=== PATIENT | female | born 1945 | race Caucasian/White ===

== ENCOUNTER → 2023-06-30 11:24 | Outpatient (REF) | payer OTHER, SELFPAY | LOC: WDC 11:24 | PROVIDERS: ATTENDING PHYSICIAN Family Medicine | DX: Z12.31 Encounter for screening mammogram for malignant neoplasm of breast (principal) | CPT/HCPCS: 77063; 77067 ==

== ENCOUNTER → 2023-07-07 12:54 | Outpatient (REF) | payer OTHER, SELFPAY | LOC: HWRAD 12:54 | PROVIDERS: ATTENDING PHYSICIAN Nurse Practitioner Family; FAMILY PHYSICIAN Family Medicine | DX: R10.32 Left lower quadrant pain (principal) | CPT/HCPCS: 74177; Q9967 ==

== ENCOUNTER → 2023-08-13 08:48 | Outpatient (REF) | payer OTHER, SELFPAY | LOC: PAVMRI 08:48 | PROVIDERS: ATTENDING PHYSICIAN Family Medicine | DX: K85.00 Idiopathic acute pancreatitis without necrosis or infection (principal); R93.5 Abnormal findings on diagnostic imaging of other abdominal regions, including retroperitoneum | CPT/HCPCS: 74183; A9575 ==

== ENCOUNTER 2023-10-10 01:52 | Inpatient (IN) | payer OTHER, SELFPAY ==
[2023-10-09 22:35] VITALS: BP 170/89
--- NOTE | 2023-10-09 23:46 | ED.GENMED ---
History of Present Illness
General
Chief Complaint: Abdominal Pain
Source: patient, records and previous radiology exam
Exam Limitations: none
Time Seen by Provider: 10/09/23 23:38
Nursing documentation reviewed up to this point in time: agreed with
History of Present Illness
History of Present Illness:
77-year-old female presents with abdominal pain nausea vomiting, from her lower abdomen up into her chest, states she has had pancreatitis previously treated conservatively, she had a CAT scan and MRI, stop drinking alcohol, started herself on a
bland diet, which improved her symptoms, yesterday she had some eggs, symptoms worsen developed nausea vomiting pain, no fevers no chills, has had prior orthopedic procedures, no prior abdominal surgeries,
Past History
Past History
ED Past Medical History: GERD, Hypercholesterolemia, Hypothyroidism, Psychiatric (Anxiety disorder), Other (Migraine headaches), Other (Cerebral venous thrombosis) and Other (Herniated lumbar disc)
ED Past Surgical History: Orthopedic and Other (Eye surgery, cataract surgery, partial thyroidectomy); Negative Appendectomy, Bowel resection or Cholecystectomy
Social History
Tobacco: Smoker
Alcohol: Former
Drug: None
Personal:
Living: with family
Employment: Retired
Review of Systems
Review of Systems
All Other Systems: Not applicable
Constitutional: Reports fever (99.8)
EENT: Reports no symptoms
Respiratory: Reports no symptoms
Cardiac: Reports no symptoms
ABD/GI: Reports abdominal pain, nausea and vomiting
Musculoskeletal: Reports no symptoms
Skin: Reports no symptoms
Neurological: Reports no symptoms
Endocrine: Reports no symptoms
Hematologic/Lymphatic: Reports no symptoms
Psychiatric: Reports no symptoms
Phy Exam
Physical Exam
Physical Exam:
Physical Exam
General: 77-year-old female nontoxic looks uncomfortable
Neck: No jaundice
Heart: s1/s2 regular rate and rhythm, no murmur. equal radial pulses.
Lungs: no acute respiratory distress. clear bilaterally
Abdomen: Tender in the epigastrium and mid abdomen
Neuro: alert and oriented. no focal neurological deficits
Skin: no rash
Psychiatric: well kept. interactive and cooperative
Extremities: no edema. no calf tenderness.
Course
Orders/Labs/Results
Orders:
Orders
10/09/23 23:39
Urinalysis Reflex To Culture Urgent
Date Specimen was Collected: 10/10/23
Time Specimen was Collected: 00:18
10/09/23 23:40
Electrocardiogram (*1) Urgent
Reason for Study: Abdominal Pain
EKG- Treatment ONCE
10/09/23 23:54
Complete Blood Count/With Diff Urgent
Comprehensive Metabolic Panel Urgent
Lipase Urgent
Troponin I Urgent
10/10/23 00:09
0.9% Sodium Chloride 1000 ml [Nss] 1,000 ml IV BOLUS
HYDROmorphone [Dilaudid] 1 mg IV NOW STA
Ondansetron Injectable [Zofran] 4 mg IV NOW STA
10/10/23 00:11
CT Abd/pelvis W Iv Cont Urgent
Comment:
Reason For Exam: pain vomiting
10/10/23 00:20
Urine Microscopic Reflex Cult Urgent
Urine Culture Urgent
[place] Source: U
Specimen Description:
Date Specimen was Collected: 10/10/23
Time Specimen was Collected: 00:18
Abnormal Lab Results
10/09/23 10/10/23
23:54 00:20
WBC 12.0 H 10^3/uL
(4.8-10.8)
Abs Immat Gran (auto) 0.1 H 10^3/uL
(0-0.05)
Absolute Neuts (auto) 10.1 H 10^3/uL
(1.4-6.5)
Neutrophils % 84.1 H %
(42.2-75.2)
Lymphocytes % 12.6 L %
(20.5-51.1)
Glucose 133 H mg/dl
(70-99)
Lipase > 4000 H* U/L
(23-300)
Ur Occult Blood Reflex Trace A
(Negative)
Leukocyte Esterase Rfl 1+ A
(Negative)
10/09/23 23:54
10/09/23 23:54
Vital Signs
Initial and Last Documented VS:
Initial Vital Signs
Temp Pulse Resp BP Pulse Ox
98.4 F 81 16 170/89 100
10/09/23 22:35 10/09/23 22:35 10/09/23 22:35 10/09/23 22:35 10/09/23 22:35
Last Documented Vital Signs
Temp Pulse Resp BP Pulse Ox
98.4 F 81 16 170/89 99
10/09/23 22:35 10/09/23 22:35 10/09/23 22:35 10/09/23 22:35 10/10/23 00:15
MDM/Problems Addressed
Differential Diagnosis Includes:
Pancreatitis, bowel obstruction, biliary colic, dehydration
MDM/Problems Addressed:
Abdominal pain
Chronic conditions affecting care:
Pancreas
Acute Exacerbation and/or Progression of Chronic Illness:
Pancreatitis
*Radiology
Radiology exam reviewed: preliminary read by ED provider
*Pulse Oximetry
Patient hypoxic: no
*EKG
Interpreted by ED Provider?: Yes
Interpretation: normal
Comparison EKG: no comparison EKG present
Heart Rate: 78
Rate: normal
Rhythm: sinus
Ischemia: no ischemia
*[employer] Interpretation
Rate: normal
Interpretation: normal
Heart Rate: 70
Rhythm: sinus
*Critical Care Note
Total Time (30-74mins, 75-104mins- exclusive of procedures): Not Applicable
Data Reviewed
Review of Other/Old Records Reveals: Labs, Records and Radiology Studies
Source: patient, records and previous radiology exam
Update Note
Update Note:
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
saline, repeat her CT scan
1245 labs are noted, will require admission
ED Attending Note
-
Portions of this chart may have been created with voice recognition software.� Occasional wrong word or��sound alike� substitutions may have occurred due to the inherent limitations of voice recognition software.
Discharge Plan
Departure
Prescriptions:
No Action
ascorbic acid (vitamin C) [Vitamin C] 500 MG tablet
500 mg PO DAILY
zolpidem 12.5 MG tablet,ext release multiphase
12.5 mg PO HS
Patient Comments:
04/19/2022: last filled 04/04/22, 30 tabs for 30 days from [facility]
levothyroxine 100 mcg tablet
100 mcg PO Q48H
alprazolam 0.25 mg tablet
0.25 mg PO DAILY PRN (Reason: anxiety)
Patient Comments:
04/19/2022: last filled 04/04/22, 30 tabs for 30 days from [facility]
montelukast 10 mg Tablet
10 mg PO QPM
glucosamine sulfate 750 mg Tablet
750 mg PO DAILY
cholecalciferol (vitamin D3) [Vitamin D3] 25 mcg (1,000 unit) Tablet
25 mcg PO DAILY
lansoprazole 30 mg capsule,delayed release(DR/EC)
30 mg PO DAILY
docusate sodium [Colace] 100 mg Capsule
100 mg PO DAILY
vitamin B complex Tablet
1 tab PO DAILY
levothyroxine 112 mcg tablet
112 mcg PO Q48H
zinc sulfate 50 mg zinc (220 mg) Capsule
50 mg PO DAILY
doxycycline monohydrate 100 mg capsule
100 mg PO Q12H Qty: 0 0RF
Referrals:
Claribel Muhammad DO [Family Provider] -
Interventions
Interventions:
*Risk Screen - Suicide Last Done: 10/09/23 22:35
*General Assessment Last Done: 10/09/23 22:35
*Neglect/Abuse Screening Last Done: 10/09/23 22:35
ED- Fall Risk Assessment Last Done: 10/10/23 00:27
ZV-Ejwrbr-Audfeoojdh Assessment Last Done: 10/10/23 00:27
Discharge Date and Time
Print Language: TANZANIAN
[2023-10-10 00:01] LABS: % Basophils 0.1 % (0-2); % Immature Granulocytes 0.4 % (0-0.5); % Lymphocytes 12.6 % (20.5-51.1); % Monocytes 2.8 % (1.7-9.3); % Neutrophils 84.1 % (42.2-75.2); Absolute Immature Granulocytes 0.1 10^3/uL (0-0.05); Absolute Lymphocytes 1.5 10^3/uL (1.2-3.4); Absolute Monocytes 0.3 10^3/uL (0.1-0.6); Absolute Neutrophils 10.1 10^3/uL (1.4-6.5); Hematocrit 42.2 % (37.0-47.0); Hemoglobin 14.2 g/dL (12.0-16.0); Mean Corp Hgb Conc. 33.6 g/dL (33.0-37.0); Mean Corpuscular Hgb 27.9 pg (27.0-31.0); Mean Corpuscular Volume 82.9 fL (81.0-99.0); Nucleated Red Blood Cells % 0 %; Platelet Count 211 10^3/uL (130-400); Red Blood Cell Count 5.09 10^6/uL (4.20-5.40); Red Cell Dist. Width 14.1 % (11.5-14.5)
[2023-10-10] MEDS: ZOFRAN 4 MG IV (00:14)
[2023-10-10] MEDS: DILAUDID 1 MG IV (00:15)
[2023-10-10] MEDS: NSS 1000 IV (00:16)
[2023-10-10 00:18] LABS: ALT (SGPT) 22 U/L (0-35); AST (SGOT) 29 U/L (14-36); Albumin 4.1 g/dl (3.5-5.0); Alkaline Phosphatase 84 U/L (38-126); Blood Urea Nitrogen 17 mg/dl (7-17); Calcium 9.5 mg/dl (8.4-10.2); Carbon Dioxide 27 mmol/L (22-30); Chloride 106 mmol/L (98-107); Glucose 133 mg/dl (70-99); Potassium 4.1 mmol/L (3.5-5.1); Sodium 140 mmol/L (135-145); Total Bilirubin 0.5 mg/dl (0.2-1.3); Total Protein 7.1 g/dl (6.3-8.2); eGFR > 60.00
[2023-10-10 00:31] LABS: Troponin I < 0.012 ng/ml
[2023-10-10 00:36] LABS: Urine Albumin Negative (Neg - Trace); Urine Bilirubin Negative (Negative); Urine Character Slightly Cloudy (Clear); Urine Color Yellow; Urine Glucose Negative (Negative); Urine Ketone Negative (Negative); Urine Leukocyte 1+ (Negative); Urine Nitrite Negative (Negative); Urine Occult Blood Trace (Negative); Urine Urobilinogen Negative (Neg - 1+)
[2023-10-10 00:45] LABS: Lipase > 4000 U/L (23-300)
[2023-10-10 00:56] LABS: Urine Amorphous Seen; Urine Bacteria Many (Negative); Urine Squamous Cell >30 /LPF (Few); Urine Urothelial Cell >30 /LPF (FEW)
[2023-10-10 00:57] LABS: Urine White Cell 16-20 /HPF (0-5)
--- NOTE | 2023-10-10 01:07 | HPS.HSE ---
Addendum entered and electronically signed by Emery Blas MD 10/10/23 03:10:
last ETOH : vodka and diet coke a glass on last a week ago
Denied ETOH use daily
Original Note:
Family Physician
-
Family Physician: Claribel Muhammad
Chief Complaint
-
abdominal pain
History of Present Illness
77F HX GERD , HX Pancreatitis seen at ER for evaluation of abdominal pain
Acute abdominal pain
- mainly in lower abdomen with radiation into epigastrium
- denied recent ETOH
- currently on bland diet
- associated N/V
Medical History
Past Medical History
Past Medical History: Reports Other
Additional Past Medical History:
Thyroid CA s/p Thyroidectomy
Anxiety/Insomnia
GERD
Past Surgical History: Reports Other
Additional Past Surgical History:
Partial Thyroidectomy
Hysterectomy
Right Rotator Cuff
Right Torn Meniscus
Social History
Tobacco: Former Smoker (Patient reports smoking 1 pack per month, but quit 3 years ago)
Family History
Family History: Not pertinent
Allergies / Home Medications
Allergies reflects when Allergies were last updated in [employer].
Home Medications with original date entered in [employer]
Allergy/Medication List:
Allergies
Allergy/AdvReac Type Severity Reaction Status Date / Time
Penicillins Allergy Rash Verified 04/19/22 13:46
Home Medications
ascorbic acid (vitamin C) 500 mg tablet (Vitamin C) 500 mg PO DAILY 08/09/12
zolpidem 12.5 mg tablet,extended release,multiphase 12.5 mg PO HS 08/09/12
alprazolam 0.25 mg tablet 0.25 mg PO DAILY PRN anxiety 04/19/22
cholecalciferol (vitamin D3) 25 mcg (1,000 unit) tablet (Vitamin D3) 25 mcg PO DAILY 04/19/22
docusate sodium 100 mg capsule (Colace) 100 mg PO DAILY 04/19/22
doxycycline monohydrate 100 mg capsule 100 mg PO Q12H 04/19/22
glucosamine sulfate 750 mg tablet 750 mg PO DAILY 04/19/22
lansoprazole 30 mg capsule,delayed release 30 mg PO DAILY 04/19/22
levothyroxine 100 mcg tablet 100 mcg PO Q48H 04/19/22
levothyroxine 112 mcg tablet 112 mcg PO Q48H 04/19/22
montelukast 10 mg tablet 10 mg PO QPM 04/19/22
vitamin B complex 1 tab PO DAILY 04/19/22
zinc sulfate 50 mg zinc (220 mg) capsule 50 mg PO DAILY 04/19/22
Review of Systems
-
History Source: Patient
A 12 point ROS was completed and negative except as noted: Yes
Constitutional: Reports See HPI
EENT: Reports No Symptoms
Cardiac: Denies Chest Pain or Palpitations
Abdomen/GI: Reports Abdominal Pain, Nausea and Vomiting; Denies Diarrhea
: Reports No Symptoms
Musculoskeletal: Reports No Symptoms
Skin: Reports No Symptoms
Neurological: Reports No Symptoms
Endocrine: Reports No Symptoms
Hematologic/Lymphatic: Reports No Symptoms
Psych: Reports No Symptoms
Physical Exam
Vital Signs
Vital Signs
Temp Pulse Resp BP Pulse Ox
98.4 F 81 16 170/89 99
10/09/23 22:35 10/09/23 22:35 10/09/23 22:35 10/09/23 22:35 10/10/23 00:15
Physical Exam
General: Well Developed, Well Nourished and No Apparent Distress
HEENT: NormoCephalic, Anicteric, Moist mucous membranes and Atraumatic
Respiratory: Non Labored Respirations, Decreased Breath Sounds and Other (Frequent Cough)
Cardiac: S1/S2 and Regular Rhythm; No Murmur
GI: Soft, Non Distended, Normal Bowel Sounds and Tender
Rectal: Deferred by Provider
Musculoskeletal: No Clubbing, No Cyanosis and No Edema
Skin: Warm and Dry; No Rash
Neuro: Awake, Alert, Oriented and Nonfocal/grossly intact
Psych: Calm
Laboratory Results
-
10/09/23 23:54
10/09/23 23:54
Laboratory Results
Total Bilirubin 0.5 mg/dl (0.2-1.3) 10/09/23 23:54
AST 29 U/L (14-36) 10/09/23 23:54
ALT 22 U/L (0-35) 10/09/23 23:54
Alkaline Phosphatase 84 U/L (38-126) 10/09/23 23:54
Troponin I < 0.012 ng/ml 10/09/23 23:54
Lipase > 4000 U/L (23-300) H* 10/09/23 23:54
Data Reviewed
-
Lab Data: Labs Reviewed by me
Old Records: Reviewed
Impression/Plan
-
Vital Signs
Temp Pulse Resp BP Pulse Ox
98.4 F 81 16 170/89 99
10/09/23 22:35 10/09/23 22:35 10/09/23 22:35 10/09/23 22:35 10/10/23 00:15
Data
WCC 12
Nl CMP
BG 133
Unremarkable LFTs
Lipase > 4000
NEG TPN
EKG
NORMAL SINUS RHYTHM
NORMAL ECG
WHEN COMPARED WITH ECG OF 19-APR-2022 14:51,
NO SIGNIFICANT CHANGE WAS FOUND
10/09/23 CT Abd/pelvis W Iv Cont
- mild to mod pancreatitis, perinephric stranding. No pancreatic necrosis
07/07/23 CT Abd/pelvis W Iv Cont
There is new inflammatory stranding about the pancreatic head and neck, with inflammatory stranding in the small bowel mesentery, mildly enlarged lymph nodes, and superior mesenteric vein thrombosis, consistent with acute pancreatitis. A discrete
pancreatic lesion is not identified, however there is ill-definition of the uncinate process.
08/13/23 MR Abdomen W/o & W Contrast
1. SUBACUTE COMPLETE THROMBOSIS of the SUPERIOR MESENTERIC VEIN with a mild amount of surrounding edema and inflammation in the center of the small bowel mesentery which appears to have mildly decreased since 07/07/2023.
2. Mild biliary and pancreatic ductal dilatation without evidence for choledocholithiasis or obstructing soft tissue mass.
3. Mild diffuse hepatic steatosis.
4. Severe multilevel discogenic degenerative disease in the lumbar and lower thoracic spine.
Last hospitalist admission: - 04/20/22 Acute viral bronchitis in the setting of COVID 19 infection.
ASSESSMENT & PLAN
Pending Rx reconciliation
Acute pancreatitis; recurrent , unclear origin , ? ETOH
- normal LFTs
- NPO and LR IVF
- PRN Narcotic analgesia
- Trend Lipase
- GI consult
Thyroid CA s/p Thyroidectomy
- on Synthroid
Anxiety/Insomnia
- on Ambien
DVT Px: LMWH
Code: Full
IP MS
[2023-10-10 02:01] VITALS: BMI 34.0
[2023-10-10 02:02] VITALS: BP 159/91
[2023-10-10] MEDS: LR 1000 IV ×5 (02:49→22:03)
--- NOTE | 2023-10-10 03:09 | PTCARENOTE ---
Pt is AAOX3, pleasant. Mild c/o abd pain. reg hear sounds. +1 BLE edema. Abd round, obese and tender to palpation. pt appears comfortable in bed and call kapoor within reach. Pt remains NPO.
[2023-10-10] MEDS: SYNTHROID 112 MCG PO (05:17)
[2023-10-10 06:00] VITALS: BMI 34.1
[2023-10-10 07:00] VITALS: BP 160/82
[2023-10-10 07:42] LABS: Hemoglobin 12.8 g/dL (12.0-16.0); Mean Corp Hgb Conc. 33.7 g/dL (33.0-37.0); Mean Corpuscular Hgb 28.3 pg (27.0-31.0); Mean Corpuscular Volume 83.9 fL (81.0-99.0); Mean Platelet Volume 10.7 fL (7.4-10.4); Platelet Count 185 10^3/uL (130-400); Red Blood Cell Count 4.53 10^6/uL (4.20-5.40); Red Cell Dist. Width 14.2 % (11.5-14.5); White Blood Cell Count 12.3 10^3/uL (4.8-10.8)
[2023-10-10 08:10] LABS: ALT (SGPT) 18 U/L (0-35); AST (SGOT) 24 U/L (14-36); Albumin 3.4 g/dl (3.5-5.0); Alkaline Phosphatase 75 U/L (38-126); Blood Urea Nitrogen 14 mg/dl (7-17); Calcium 8.9 mg/dl (8.4-10.2); Carbon Dioxide 26 mmol/L (22-30); Chloride 109 mmol/L (98-107); Estimated Creatinine Clearance 83 ml/min; Glucose 98 mg/dl (70-99); Potassium 3.7 mmol/L (3.5-5.1); Sodium 140 mmol/L (135-145); Total Bilirubin 0.5 mg/dl (0.2-1.3); Total Protein 6.1 g/dl (6.3-8.2); eGFR > 60.00
--- NOTE | 2023-10-10 08:23 | CON.GI ---
Addendum entered and electronically signed by Bobby Hickey MD 10/10/23 09:32:
I saw and examined the patient.
The YOGA COORDINATOR or PA's note was reviewed and I agree with the note.
Comment: 77yo female presents with acute pancreatitis. She has similar episode in June with CT and MRI confirming acute pancreatitis with SMV thrombosis. She managed that with bowel rest alone and did not require hospitalization. She denies
EtOH, gallstones, new meds, FH pancreatitis. Lipase 4000. LFTs normal. CT 10/08 shows acute interstitial pancreatitis without necrosis. 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
REC:
NPO
Aggressive IVF. LR @200cc/hr
Advance diet as able
Reviewed SMVT with radiology- significantly improved, still some stenosis proximally but occlusive filling defect no longer seen. Will hold on anticoagulation at this time
Check triglycerides, JODEE, IgG4
Will need follow up imaging, MRI or EUS after resolution to rule out underlying malignancy as there is no obvious cause for her pancreatitis
Original Note:
Consultation
-
Date/Time Consultation Requested: 10/10/23 @ 02:00
Date/Time Consultation Performed: 10/10/23 @ 08:15
Requesting Provider: Dr. Blas
Performing Provider: ZOIE Bishop; Dr. Bobby Hickey
Reason for Consultation: acute pancreatitis
Medical History
Chief Complaint / HPI
Chief Complaint: abdominal pain
History of Present Illness:
The patient is a 77-year-old female with a past medical history significant for thyroid cancer status post thyroidectomy, GERD on chronic PPI, anxiety, pancreatitis, history of ALARM INVESTIGATOR venous thrombosis previously on anticoagulation, osteoporosis,
chronic back pain, who presented to the emergency room with complaints of abdominal pain. We are being asked to evaluate for acute pancreatitis. The patient reports that in June she had an evaluation with her PCP for abdominal pain. She
underwent an outpatient CT scan On July 06 which showed findings consistent with acute pancreatitis along with findings suspicious for superior mesenteric vein thrombosis. She was recommended to have an MRI which was done on 08/12 which showed a
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 Also findings including mild biliary and pancreatic ductal dilation without evidence of
obstructing mass or stones, mild diffuse hepatic steatosis, and severe degenerative disc disease in the lumbar and thoracic spine. She reports at that time she did not have any severe symptoms and was managed at home with a liquid diet. She did
improve and gradually advance her diet back to regular/low-fat diet. She presents again with acute onset of abdominal pain throughout her entire abdomen along with nausea and vomiting. She notes that prior to yesterday at noon she felt completely
fine but then suddenly developed pain that was very severe radiating into her back and up into her head, which warranted ER evaluation. She denies any significant fevers or chills. She notes that she did go on a liquid diet in June for a period
of time and had lost about 10 pounds from that. She does have chronic heartburn and takes lansoprazole with good effect. She otherwise denies any dysphagia, odynophagia, change of bowel habits, signs of bleeding, chest pain, or shortness of
breath. She does take fiber and stool softeners for her bowels as she is on chronic narcotics for chronic back pain. She denies any new medications. She denies any regular alcohol use, and notes since her first episode of pancreatitis in June
she had stopped drinking completely. She does have a history of thyroid cancer and had a partial thyroidectomy and does use thyroid replacement medication. She denies any history of gallbladder disease. She denies any family history of colon
cancer or pancreatic cancer. Her last colonoscopy was in [address] Hickey. She has never had an EGD. She notes that she did not receive any recommendations on follow-up regarding her MRI in July. She underwent a CT scan in the emergency room
which showed acute interstitial edematous pancreatitis with no evidence of pancreatic fluid collection or necrosis. The main pancreatic duct is mildly dilated measuring a 4 mm but no obvious mass. The biliary ducts appear normal. Routine labs on
admission showed a WBC of 12,000, hemoglobin 14.2, platelets 211,000, glucose 133, with otherwise normal CMP. Lipase was elevated greater than 4000, with repeat pending. Urinalysis did show 16-20 WBCs with urine culture pending. She was placed on
IV fluids, made n.p.o., and admitted for further evaluation by GI.
Past Medical History
Past Medical History: GERD, Hypercholesterolemia, Hypothyroidism and Other (Pancreatitis first episode June 2023, history of ALARM INVESTIGATOR venous thrombosis, osteoporosis, chronic back pain)
Past Surgical History: Gynecological (Hysterectomy), Orthopedic (Right shoulder surgery right rotator cuff repair, right torn meniscus repair) and Other (Thyroidectomy)
Social History
Tobacco: Former Smoker (Quit smoking 5 years ago)
Alcohol: Occasional (Has not drank since June but was drinking 1 vodka drink on average weekly prior to this)
Drug: None
Living: Alone
Family History
Family History: Cancer (mother-lung CA)
Allergies / Home Medications
Allergy/AdvReac Type Severity Reaction Status Date / Time
Penicillins Allergy Rash Verified 04/19/22 13:46
�Medication �Instructions �Recorded
zolpidem 12.5 mg tablet,extended 12.5 mg PO HS Sleep 08/09/12
release,multiphase
alprazolam 0.25 mg tablet 0.25 mg PO DAILY PRN anxiety 04/19/22
lansoprazole 30 mg capsule,delayed 30 mg PO DAILY Gastrointestinal 04/19/22
release issue
levothyroxine 100 mcg tablet 100 mcg PO Q48H Thyroid 04/19/22
levothyroxine 112 mcg tablet 112 mcg PO Q48H Thyroid 04/19/22
montelukast 10 mg tablet 10 mg PO QPM PRN Allergies 04/19/22
Multi Vitamin 1 PO DAILY 10/10/23
furosemide 20 mg tablet (Lasix) 20 mg PO DAILY PRN fluid retention 10/10/23
hydrocodone 5 mg-acetaminophen 325 1 tab PO BID PRN pain 10/10/23
mg tablet
potassium 10 PO DAILY PRN lasix 10/10/23
tramadol 50 mg tablet 1 PRN pain 10/10/23
Review of Systems
-
History Source: Patient
Constitutional: Reports Fever (low grade) and Weight Loss
EENT: Reports No Symptoms
Respiratory: Reports No Symptoms
Cardiac: Reports No Symptoms
Abdomen/GI: Reports Abdominal Pain, Nausea and Vomiting
: Reports No Symptoms
Musculoskeletal: Reports Other (back pain)
Skin: Reports No Symptoms
Neurological: Reports Headache
Vital Signs
Temp Pulse Resp BP Pulse Ox
98.2 F 72 18 160/82 98
10/10/23 07:00 10/10/23 07:00 10/10/23 07:00 10/10/23 07:00 10/10/23 07:00
Physical Exam
Exam
General: Well Developed, Well Nourished and No Apparent Distress
HEENT: Normocephalic, Anicteric and Atraumatic
Respiratory: Clear
Cardiac: S1/S2 and Regular Rhythm
Breast: Deferred by me
GI: Soft, Normal Bowel Sounds, Tender (diffusely tender) and Distended (mildly distended)
Rectal: Deferred by Provider
Musculoskeletal: Edema (trace LE edema)
Skin: Warm
Neuro: Awake and Alert
Psych: Calm
Results
WBC 12.3 10^3/uL (4.8-10.8) H 10/10/23 06:57
Hgb 12.8 g/dL (12.0-16.0) 10/10/23 06:57
Hct 38.0 % (37.0-47.0) 10/10/23 06:57
MCV 83.9 fL (81.0-99.0) 10/10/23 06:57
Plt Count 185 10^3/uL (130-400) 10/10/23 06:57
Absolute Neuts (auto) 10.1 10^3/uL (1.4-6.5) H 10/09/23 23:54
Sodium 140 mmol/L (135-145) 10/10/23 06:57
Potassium 3.7 mmol/L (3.5-5.1) 10/10/23 06:57
Chloride 109 mmol/L (98-107) H 10/10/23 06:57
Carbon Dioxide 26 mmol/L (22-30) 10/10/23 06:57
BUN 14 mg/dl (7-17) 10/10/23 06:57
Creatinine 0.6 mg/dL (0.6-1.0) 10/10/23 06:57
Calcium 8.9 mg/dl (8.4-10.2) 10/10/23 06:57
Total Bilirubin 0.5 mg/dl (0.2-1.3) 10/10/23 06:57
AST 24 U/L (14-36) 10/10/23 06:57
ALT 18 U/L (0-35) 10/10/23 06:57
Alkaline Phosphatase 75 U/L (38-126) 10/10/23 06:57
Lipase > 4000 U/L (23-300) H* 10/09/23 23:54
Diagnostic Image Results:
10/10/23 Ct A/P w/IV contrast: IMPRESSION: Acute interstitial edematous pancreatitis. No evidence for a loculated peripancreatic fluid collection or pancreatic necrosis.
08/13/23 MRI Abdomen: IMPRESSION:
1. SUBACUTE COMPLETE THROMBOSIS of the SUPERIOR MESENTERIC VEIN with a mild amount of surrounding edema and inflammation in the center of the small bowel mesentery which appears to have mildly decreased since 07/07/2023.
2. Mild biliary and pancreatic ductal dilatation without evidence for choledocholithiasis or obstructing soft tissue mass.
3. Mild diffuse hepatic steatosis.
4. Severe multilevel discogenic degenerative disease in the lumbar and lower thoracic spine.
07/07/23 CT A/P w/IV contrast: IMPRESSION: There is new inflammatory stranding about the pancreatic head and neck, with inflammatory stranding in the small bowel mesentery, mildly enlarged lymph nodes, and superior mesenteric vein thrombosis,
consistent with acute pancreatitis. A discrete pancreatic lesion is not identified, however there is ill-definition of the uncinate process. Recommend follow-up with contrast-enhanced pancreatic MRI after treatment to exclude an occult malignancy.
There is no focal fluid collection. No free air. Appendix within normal limits. No free fluid or fluid collection in the pelvis. Evidence of prior granulomatous disease. Moderate degenerative disk and joint disease in the spine.
Prior GI Procedures:
EGD: none
Colonoscopy: 03/07/2022 Dr. Hickey: One 4 mm polyp removed from the ascending colon, 3 diminutive polyps in the sigmoid, transverse colon, diverticulosis in the sigmoid and ascending colon. Pathology revealing 1 adenomatous polyp otherwise
hyperplastic polyps. Repeat in 5 years
05/09/2015 Dr. Hickey: One 6 mm polyp in the cecum removed, one 4 mm polyp in the transverse colon removed, 5 diminutive polyps in the rectum, sigmoid colon, and cecum removed. Path showing 1 adenomatous polyp, otherwise hyperplastic.
Assessment / Plan
-
The patient is a 77-year-old female with a past medical history significant for thyroid cancer status post thyroidectomy, GERD on chronic PPI, anxiety, pancreatitis, history of ALARM INVESTIGATOR venous thrombosis previously on anticoagulation, osteoporosis,
chronic back pain, who presented to the emergency room with complaints of abdominal pain found to have acute pancreatitis. She had a first episode of pancreatitis in June, of unclear etiology. She had a CT and MRI imaging done at that time
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 She reports she did not have further workup at that time. Now
presenting again with abdominal pain, nausea, and vomiting found to have recurrent pancreatitis. CT imaging on admission showing acute interstitial edematous pancreatitis without complication. Her LFTs are normal. Lipase greater than 4000. She
denies any recent significant alcohol use or changes in medications. She continues with diffuse tenderness although improved without further vomiting.
Problem list:
-Acute pancreatitis, second episode
-CT/MRI imaging showing superior mesenteric vein thrombosis, mild PD dilation
-Mild leukocytosis, likely reactive
-Occasional alcohol use
Other pertinent medical hx:
-GERD
-Anxiety
-History of allergy
-Chronic pain on chronic opioid
-History of ALARM INVESTIGATOR venous thrombosis previously on anticoagulation
-History of thyroid cancer status post thyroidectomy
Recommendations:
-Etiology of pancreatitis unclear at this time. Imaging does not reveal any obvious mass or stones. This is her second episode. She does have history of ALARM INVESTIGATOR venous thrombosis per outpatient records, with prior imaging in July showing superior
mesenteric vein thrombosis and CT scan this admission showing chronic thrombosis.
-Will advance to clear liquid diet as she is feeling improved, goal diet to low-fat
-Reduce IV fluids
-Check triglycerides and IgG4 level
-She should abstain from alcohol completely
-Consider repeat MRI inpatient versus outpatient pending clinical course.
-Likely will eventually need EUS for further evaluation given unclear etiology with mild PD dilation. She does also take chronic narcotics which may cause some mild ductal dilation.
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 Will review with Dr. Hickey.
-Further plan pending above
Data Reviewed
-
CT Scan: Report Reviewed by me and Discussed with Physician
MRI: Report Reviewed by me and Discussed with Physician
Old Records: Reviewed
-
-
Thank you for consultation and allowing me to participate in the patient's care. Please call the dehydration plant operator GI physician during the after hours with any questions or concerns.
[2023-10-10 08:50] LABS: Lipase > 4000 U/L (23-300)
[2023-10-10] MEDS: DILAUDID 0.25 MG IV (09:00)
[2023-10-10] MEDS: DILAUDID 0.5 MG IV ×3 (10:47→20:50)
--- NOTE | 2023-10-10 12:11 | W.PN.HOSP.TC ---
Today's Communication/Plan
-
cont IVF
follow labs
Assessment / Plan
Assessment / Plan
pt is a 77 year old female
Acute pancreatitis-- recurrent, unclear origin, ? ETOH (although denies daily drinking)- normal LFTs -clears LR IVF- PRN Narcotic analgesia - Trend Lipase--apprec GI
Thyroid CA s/p Thyroidectomy- on Synthroid
Anxiety/Insomnia- on Ambien
DVT Px: LMWH
Code: Full
Anticipated Discharge: > 48 hours
Subjective/Interval History
-
Date of Service: October 10, 2023
pt still with some mild abdominal pain--tolerating clears
Objective Data
-
Labs:
Laboratory Results
10/09/23 10/10/23
23:54 06:57
WBC 12.3 H
Hgb 12.8
Hct 38.0
Plt Count 185
Sodium 140 140
Potassium 4.1 3.7
Chloride 106 109 H
Carbon Dioxide 27 26
BUN 17 14
Creatinine 0.6 0.6
Glucose 133 H 98
Calcium 9.5 8.9
Total Bilirubin 0.5 0.5
AST 29 24
ALT 22 18
Alkaline Phosphatase 84 75
Vital Signs:
max temp for 24 hours
10/09/23
22:35
Temp 98.4 F
Vital Signs
Temp Pulse Resp BP Pulse Ox
98.2 F 72 18 160/82 98
10/10/23 07:00 10/10/23 07:00 10/10/23 07:00 10/10/23 07:00 10/10/23 07:00
I&O
10/09/23 10/10/23 10/11/23
06:59 06:59 06:59
Intake Total 800 / 800
Balance 800 / 800
Review of Systems
-
All other systems: Reviewed and negative
Physical Exam
-
General: Well Developed, Well Nourished and No Apparent Distress
HEENT: Normocephalic and Atraumatic
Respiratory: Clear to Auscultation; Negative Wheezes or Rhonchi
Cardiac: Regular Rhythm and S1/S2; Negative Murmur
GI: Soft, Nontender, Nondistended and Normal Bowel Sounds
Musculoskeletal: No Clubbing, No Cyanosis and No Edema
Neuro: Awake and Alert
[2023-10-10 15:00] VITALS: BP 167/85
[2023-10-10 15:19] LABS: Triglycerides 150 mg/dl (10-149)
[2023-10-10] MEDS: LOVENOX 40 MG SC (17:14)
[2023-10-10] MEDS: NSS (PRESERVATIVE FREE) 10 ML IV (18:28)
[2023-10-10] MEDS: PROTONIX IV 40 MG IV (18:29)
[2023-10-10 23:10] VITALS: BP 160/78
[2023-10-11] MEDS: LR 1000 IV ×5 (03:05→22:49)
[2023-10-11] MEDS: SYNTHROID 100 MCG PO (05:34)
[2023-10-11] MEDS: DILAUDID 0.5 MG IV ×3 (05:39→22:51)
[2023-10-11 06:00] VITALS: BMI 34.9
[2023-10-11 06:49] VITALS: BP 157/85
[2023-10-11 07:46] LABS: Hematocrit 36.8 % (37.0-47.0); Hemoglobin 12.5 g/dL (12.0-16.0); Mean Corpuscular Hgb 28.4 pg (27.0-31.0); Mean Corpuscular Volume 83.6 fL (81.0-99.0); Mean Platelet Volume 11.1 fL (7.4-10.4); Platelet Count 159 10^3/uL (130-400); Red Cell Dist. Width 14.3 % (11.5-14.5); White Blood Cell Count 11.5 10^3/uL (4.8-10.8)
[2023-10-11 08:07] LABS: ALT (SGPT) 16 U/L (0-35); AST (SGOT) 22 U/L (14-36); Albumin 3.1 g/dl (3.5-5.0); Alkaline Phosphatase 71 U/L (38-126); Blood Urea Nitrogen 6 mg/dl (7-17); Calcium 8.7 mg/dl (8.4-10.2); Carbon Dioxide 25 mmol/L (22-30); Chloride 105 mmol/L (98-107); Estimated Creatinine Clearance 84 ml/min; Glucose 89 mg/dl (70-99); Lipase 739 U/L (23-300); Magnesium 1.7 mg/dl (1.6-2.3); Potassium 3.7 mmol/L (3.5-5.1); Sodium 137 mmol/L (135-145); Total Bilirubin 0.8 mg/dl (0.2-1.3); Total Protein 5.6 g/dl (6.3-8.2); eGFR > 60.00
--- NOTE | 2023-10-11 08:09 | W.PN.HOSP.TC ---
Today's Communication/Plan
-
cont IVF
diet as per GI
Assessment / Plan
Assessment / Plan
pt is a 77 year old female
Acute pancreatitis-- recurrent, unclear origin, ? ETOH (although denies daily drinking)- normal LFTs -clears/LR IVF- PRN Narcotic analgesia - Trend Lipase--apprec GI, diet advancement per GI
Thyroid CA s/p Thyroidectomy- on Synthroid
Anxiety/Insomnia- on Ambien
DVT Px: LMWH
Code: Full
Anticipated Discharge: 24 - 48 hours
Subjective/Interval History
-
Date of Service: October 11, 2023
pt fire tender but tolerating clears--wants something to sleep at night
Objective Data
-
Labs:
Laboratory Results
10/11/23
06:42
WBC 11.5 H
Hgb 12.5
Hct 36.8 L
Plt Count 159
Sodium 137
Potassium 3.7
Chloride 105
Carbon Dioxide 25
BUN 6 L
Creatinine 0.5 L
Glucose 89
Calcium 8.7
Total Bilirubin 0.8
AST 22
ALT 16
Alkaline Phosphatase 71
Vital Signs:
max temp for 24 hours
10/10/23
23:10
Temp 100.9 F H
Vital Signs
Temp Pulse Resp BP Pulse Ox
98.5 F 72 16 157/85 95
10/11/23 06:49 10/11/23 06:49 10/11/23 06:49 10/11/23 06:49 10/11/23 06:49
I&O
10/10/23 10/11/23 10/12/23
06:59 06:59 06:59
Intake Total 800 / 800 3000 / 3000
Balance 800 / 800 3000 / 3000
Review of Systems
-
All other systems: Reviewed and negative
Constitutional: Reports Other (poor sleep quality)
Abdomen/GI: Reports Abdominal Pain
Physical Exam
-
General: Well Developed, Well Nourished and No Apparent Distress
HEENT: Normocephalic and Atraumatic
Respiratory: Clear to Auscultation; Negative Wheezes or Rhonchi
Cardiac: Regular Rhythm and S1/S2; Negative Murmur
GI: Soft, Nontender (pt not grimacing with palpation but says she is tender), Nondistended and Normal Bowel Sounds
Musculoskeletal: No Clubbing, No Cyanosis and No Edema
Neuro: Awake and Alert
Psych: Calm
[2023-10-11] MEDS: NSS (PRESERVATIVE FREE) 10 ML IV (08:39)
[2023-10-11] MEDS: PROTONIX IV 40 MG IV (08:39)
--- NOTE | 2023-10-11 10:09 | W.PN.GI.CBS2 ---
Today's Communication / Plan
-
Improved today
Will start low fat diet
If tolerates, possible d/c tomorrow
F/U with me in office to set up f/u imaging MRI vs EUS after resolution
Assessment / Plan
-
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
osteoporosis, chronic back pain, who presented to the emergency room with complaints of abdominal pain found to have acute pancreatitis. She had a first episode of pancreatitis in June, of unclear etiology. She had a CT and MRI imaging done at
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 She reports she did not have further workup at that
time. Now presenting again with abdominal pain, nausea, and vomiting found to have recurrent pancreatitis.
CT imaging on admission showing acute interstitial edematous pancreatitis without complication. Her LFTs are normal. Lipase greater than 4000. She denies any recent significant alcohol use or changes in medications. She continues with diffuse
tenderness although improved without further vomiting.
Problem list:
-Acute pancreatitis, second episode
-CT/MRI imaging showing superior mesenteric vein thrombosis, mild PD dilation. Reviewed SMVT with radiology- significantly improved, still some stenosis proximally but occlusive filling defect no longer seen. Will hold on anticoagulation at this
time
-Mild leukocytosis, likely reactive
-Occasional alcohol use
Other pertinent medical hx:
-GERD
-Anxiety
-History of allergy
-Chronic pain on chronic opioid
-History of DEMOLITION HAMMER OPERATOR venous thrombosis previously on anticoagulation
-History of thyroid cancer status post thyroidectomy
Subjective
Subjective
Date of Service: October 11, 2023
Abd pain improved today
Objective
Data Reviewed
Laboratory Data:
Laboratory Results
10/11/23 06:42
10/11/23 06:42
Laboratory Results
Magnesium 1.7 mg/dl (1.6-2.3) 10/11/23 06:42
Total Bilirubin 0.8 mg/dl (0.2-1.3) 10/11/23 06:42
AST 22 U/L (14-36) 10/11/23 06:42
ALT 16 U/L (0-35) 10/11/23 06:42
Alkaline Phosphatase 71 U/L (38-126) 10/11/23 06:42
Lipase 739 U/L (23-300) H 10/11/23 06:42
Vital Signs and I&O:
Vital Signs
Temp Pulse Resp BP Pulse Ox
98.5 F 72 16 157/85 95
10/11/23 06:49 10/11/23 06:49 10/11/23 06:49 10/11/23 06:49 10/11/23 06:49
I&O
10/10/23 10/11/23 10/12/23
06:59 06:59 06:59
Intake Total 800 / 800 3000 / 3000
Balance 800 / 800 3000 / 3000
Physical Exam
Physical Exam
GI: Soft and Tender (mild central tender, no r/g)
[2023-10-11 14:56] VITALS: BP 164/89
[2023-10-11] MEDS: LOVENOX 40 MG SC (17:16)
[2023-10-11] MEDS: ZOFRAN 4 MG IV (19:42)
[2023-10-11] MEDS: BENADRYL 25 MG PO (22:50)
[2023-10-11 23:25] VITALS: BP 158/90
[2023-10-12] MEDS: LR 1000 IV ×2 (03:54→08:07)
[2023-10-12] MEDS: SYNTHROID 112 MCG PO (05:34)
[2023-10-12 06:00] VITALS: BMI 35.1
--- NOTE | 2023-10-12 06:52 | W.PN.GI.CBS2 ---
Today's Communication / Plan
-
Continue diet today
If tolerates, OK for d/c
F/U with me in office to set up f/u imaging (MRI vs EUS) to assess pancreas after resolution and r/o underlying malignancy
Assessment / Plan
-
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
osteoporosis, chronic back pain, who presented to the emergency room with complaints of abdominal pain found to have acute pancreatitis. She had a first episode of pancreatitis in June, of unclear etiology. She had a CT and MRI imaging done at
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 She reports she did not have further workup at that
time. Now presenting again with abdominal pain, nausea, and vomiting found to have recurrent pancreatitis.
CT imaging on admission showing acute interstitial edematous pancreatitis without complication. Her LFTs are normal. Lipase greater than 4000. She denies any recent significant alcohol use or changes in medications. She continues with diffuse
tenderness although improved without further vomiting.
Problem list:
-Acute pancreatitis, second episode
-CT/MRI imaging showing superior mesenteric vein thrombosis, mild PD dilation. Reviewed SMVT with radiology- significantly improved, still some stenosis proximally but occlusive filling defect no longer seen. Will hold on anticoagulation at this
time
-Mild leukocytosis, likely reactive
-Occasional alcohol use
Other pertinent medical hx:
-GERD
-Anxiety
-History of allergy
-Chronic pain on chronic opioid
-History of TOY DESIGNER venous thrombosis previously on anticoagulation
-History of thyroid cancer status post thyroidectomy
Subjective
Subjective
Date of Service: October 12, 2023
Tolerated diet, but reports nausea. Abd pain improved overall
Objective
Data Reviewed
Laboratory Data:
Laboratory Results
Magnesium 1.7 mg/dl (1.6-2.3) 10/11/23 06:42
Total Bilirubin 0.8 mg/dl (0.2-1.3) 10/11/23 06:42
AST 22 U/L (14-36) 10/11/23 06:42
ALT 16 U/L (0-35) 10/11/23 06:42
Alkaline Phosphatase 71 U/L (38-126) 10/11/23 06:42
Lipase 739 U/L (23-300) H 10/11/23 06:42
Vital Signs and I&O:
Vital Signs
Temp Pulse Resp BP Pulse Ox
99.6 F 81 20 158/90 97
10/11/23 23:25 10/11/23 23:25 10/11/23 23:25 10/11/23 23:25 10/11/23 23:25
I&O
10/10/23 10/11/23 10/12/23
06:59 06:59 06:59
Intake Total 800 / 800 3000 / 3000 2680 / 2680
Balance 800 / 800 3000 / 3000 2680 / 2680
Physical Exam
Physical Exam
GI: Soft and Tender (mild)
[2023-10-12 07:47] VITALS: BP 155/66
[2023-10-12 07:58] LABS: Hematocrit 42.2 % (37.0-47.0); Hemoglobin 13.7 g/dL (12.0-16.0); Mean Corp Hgb Conc. 32.5 g/dL (33.0-37.0); Mean Corpuscular Hgb 28.1 pg (27.0-31.0); Mean Corpuscular Volume 86.7 fL (81.0-99.0); Mean Platelet Volume 10.6 fL (7.4-10.4); Platelet Count 182 10^3/uL (130-400); Red Blood Cell Count 4.87 10^6/uL (4.20-5.40); Red Cell Dist. Width 14.2 % (11.5-14.5); White Blood Cell Count 12.2 10^3/uL (4.8-10.8)
[2023-10-12] MEDS: PROTONIX IV 40 MG IV (08:07)
[2023-10-12] MEDS: NSS (PRESERVATIVE FREE) 10 ML IV (08:08)
[2023-10-12 08:40] LABS: Blood Urea Nitrogen 8 mg/dl (7-17); Calcium 9.1 mg/dl (8.4-10.2); Carbon Dioxide 27 mmol/L (22-30); Chloride 104 mmol/L (98-107); Estimated Creatinine Clearance 82 ml/min; Glucose 83 mg/dl (70-99); Lipase 434 U/L (23-300); Potassium 3.7 mmol/L (3.5-5.1); Sodium 139 mmol/L (135-145); eGFR > 60.00
[2023-10-12 08:44] LABS: Magnesium 1.7 mg/dl (1.6-2.3)
--- NOTE | 2023-10-12 09:51 | CM ---
Patient seen at bedside. Patient states that she is going home today. Patient lives alone in a 2 story home with 3 dogs. Patient stated that her friend will provide transportation home. Patient PCP is Dr. Muhammad and she uses the [facility] in
[place]. Patient indicated if possible she would like anti nausea pills for discharge but agreed to talk to physician. CM will continue to follow for discharge planning needs.
Plan; home with no needs at this time.
[2023-10-12 12:03] VITALS: BP 168/91
--- NOTE | 2023-10-12 13:59 | W.PN.HOSP.TC ---
Today's Communication/Plan
-
d/c home if tolerated diet
Assessment / Plan
Assessment / Plan
pt is a 77 year old female
Acute pancreatitis idiopathic
-recurrent, unclear origin, ? ETOH (although denies daily drinking)
-normal LFTs
-clears/LR IVF- PRN Narcotic analgesia
-Trend Lipase
-apprec GI, diet advancement per GI
Thyroid CA s/p Thyroidectomy
- on Synthroid
Anxiety/Insomnia- on Ambien
DVT Px: LMWH
Code: Full
More than 30 minutes spent in discharge including
Final examination of the patient
Summarizing hospital stay
Instructions for continuing care to all relevant caregivers
Preparation of discharge records, prescriptions, and referral forms
Total time spent (in minutes): 38 mins
Anticipated Discharge: Today
Subjective/Interval History
-
Date of Service: October 12, 2023
Denies having any abdominal pain/nausea/vomiting
No other issues
Objective Data
-
Labs:
Laboratory Results
10/12/23
07:47
WBC 12.2 H
Hgb 13.7
Hct 42.2
Plt Count 182
Sodium 139
Potassium 3.7
Chloride 104
Carbon Dioxide 27
BUN 8
Creatinine 0.6
Glucose 83
Calcium 9.1
Vital Signs:
Vital Signs
Temp Pulse Resp BP Pulse Ox
99.1 F 85 20 168/91 96
10/12/23 12:03 10/12/23 12:03 10/12/23 12:03 10/12/23 12:03 10/12/23 12:03
I&O
10/11/23 10/12/23 10/13/23
06:59 06:59 06:59
Intake Total 3000 / 3000 2680 / 2680
Balance 3000 / 3000 0 / 268
Review of Systems
-
Respiratory: Reports No Symptoms
Cardiac: Reports No Symptoms
Abdomen/GI: Reports No Symptoms
Physical Exam
-
General: Comfortable and Obese
HEENT: Negative Oxygen
Respiratory: Clear to Auscultation; Negative Wheezes
Cardiac: Regular Rhythm and S1/S2; Negative Murmur
GI: Soft and Nondistended; Negative Tender
Musculoskeletal: No Edema
Neuro: Awake and Alert
Psych: Calm
[2023-10-12 23:00] LABS: ANA, IgG Reflex to HEp-2 None Detected (None Detected)
[2023-10-13 01:15] LABS: IgG Subclass 4 57 mg/dL (1-123)
--- NOTE | 2023-10-13 07:46 | W.DCSUMMARY ---
Discharge Summary
Discharge Data
Date of Admission: 10/10/23
Date of Discharge: 10/12/23
-
Pending Results: No
Hospital Course
Discharging Physician : Dr King Noyola
Disposition : Home
Primary care physician : Dr Claribel Muhammad
Principal Discharge diagnosis :
Acute idiopathic pancreatitis
Chronic Discharge diagnosis :
History of superior mesenteric vein thrombosis
Gastroesophageal reflux disease
Chronic pain on narcotics
History of thyroid cancer s/p thyroidectomy
History of central nervous system venous thrombosis
Hospital Course :
Patient is 78-year-old female with above-mentioned past medical history came to ER for having new onset of acute abdominal pain. Pain was mainly located in epigastric region. Patient was diagnosed to having acute pancreatitis with elevated lipase
in ER. Patient had a CT abdomen pelvis which was showing acute interstitial edematous pancreatitis. GI involved in care no clear etiological reason found. Patient does have history of 1 more episode of pancreatitis earlier this year and at that
time had subacute thrombosis of superior mesenteric vein although on CT abdomen pelvis this visit this was not visualized. Patient was managed medically and after resolution of symptoms was discharged home.
Important imaging findings :
None
Procedure findings :
None
Discharge Plan
-
Patient Disposition: Home (Routine Discharge)
Discharge Diagnosis/Procedures: Acute pancreatitis, Thyroid CA s/p Thyroidectomy, Anxiety/Insomnia
Condition: Good
Diet: Low Fat
Activity: As tolerated
Driving Restrictions: No driving while on narcotic medication
Bathing Restrictions: None
Referrals:
Bobby Hickey MD [Active] - in one to two weeks (call for appointment)
Claribel Muhammad DO [Family Provider] - in less than 1 week
Prescriptions:
New
ondansetron 4 mg tablet,disintegrating
4 mg PO Q8H PRN (Reason: nausea and vomiting) 5 Days Qty: 14 0RF
Continued
zolpidem 12.5 MG tablet,ext release multiphase
12.5 mg PO HS
Patient Comments:
04/19/2022: last filled 04/04/22, 30 tabs for 30 days from [facility]
levothyroxine 100 mcg tablet
100 mcg PO Q48H
alprazolam 0.25 mg tablet
0.25 mg PO DAILY PRN (Reason: anxiety)
Patient Comments:
04/19/2022: last filled 04/04/22, 30 tabs for 30 days from [facility]
montelukast 10 mg Tablet
10 mg PO QPM PRN (Reason: Allergies)
lansoprazole 30 mg capsule,delayed release(DR/EC)
30 mg PO DAILY
levothyroxine 112 mcg tablet
112 mcg PO Q48H
hydrocodone-acetaminophen 5-325 mg Tablet
1 tab PO BID PRN (Reason: pain)
tramadol 50 mg Tablet
1 PRN (Reason: pain)
furosemide [Lasix] 20 mg Tablet
20 mg PO DAILY PRN (Reason: fluid retention)
Multi Vitamin
1 PO DAILY
potassium
10 PO DAILY PRN (Reason: lasix)
Discharge Orders:
Discharge Patient (As Directed); Ordered 10/12/23
Ordered By: King Noyola
Discharge Date and Time
Discharge Date/Time: 10/12/23 13:04
Print Language: KAZAKH
== END 2023-10-12 13:04 | disposition home or self-care (01) | DRG 439 ==
LOC: 4 WEST ACU 01:52
PROVIDERS: Internal Medicine; ADMITTING PHYSICIAN Internal Medicine; ATTENDING PHYSICIAN Hospitalist; CONSULT PHYSICIAN Internal Medicine Endocrinology, Diabetes & Metabolism; EMERGENCY PHYSICIAN Emergency Medicine; FAMILY PHYSICIAN Family Medicine
DX: K85.90 Acute pancreatitis without necrosis or infection, unspecified (principal); K55.1 Chronic vascular disorders of intestine; K76.0 Fatty (change of) liver, not elsewhere classified; E89.0 Postprocedural hypothyroidism; K83.8 Other specified diseases of biliary tract; F41.9 Anxiety disorder, unspecified; G47.00 Insomnia, unspecified; K21.9 Gastro-esophageal reflux disease without esophagitis; G89.29 Other chronic pain; M51.36 Other intervertebral disc degeneration, lumbar region; M51.34 Other intervertebral disc degeneration, thoracic region; F10.90 Alcohol use, unspecified, uncomplicated; Z79.891 Long term (current) use of opiate analgesic; Z79.890 Hormone replacement therapy; Z79.899 Other long term (current) drug therapy; Z85.850 Personal history of malignant neoplasm of thyroid; Z87.891 Personal history of nicotine dependence; Z86.010 Personal history of colon polyps; Z87.19 Personal history of other diseases of the digestive system; Z88.0 Allergy status to penicillin
CPT/HCPCS: 74177; 80048; 80053; 81003; 81015; 82787; 83690; 83735; 84478; 84484; 85025; 85027; 86038; 87077; 87086; 87147; 93005; 96361; 96374; 96375; 99285; Q9967

== ENCOUNTER 2023-12-16 05:33 | Inpatient (IN) | payer OTHER, SELFPAY ==
[2023-12-15 20:16] VITALS: BP 142/82
[2023-12-15 20:38] LABS: % Basophils 0.2 % (0-2); % Eosinophils 0.4 % (0-6); % Immature Granulocytes 0.4 % (0-0.5); % Lymphocytes 22.6 % (20.5-51.1); % Monocytes 7.1 % (1.7-9.3); % Neutrophils 69.3 % (42.2-75.2); Absolute Lymphocytes 2.4 10^3/uL (1.2-3.4); Absolute Monocytes 0.8 10^3/uL (0.1-0.6); Absolute Neutrophils 7.5 10^3/uL (1.4-6.5); Hematocrit 41.3 % (37.0-47.0); Hemoglobin 14.3 g/dL (12.0-16.0); Mean Corp Hgb Conc. 34.6 g/dL (33.0-37.0); Mean Corpuscular Hgb 28.1 pg (27.0-31.0); Mean Corpuscular Volume 81.3 fL (81.0-99.0); Mean Platelet Volume 10.2 fL (7.4-10.4); Nucleated Red Blood Cells % 0 %; Platelet Count 243 10^3/uL (130-400); Red Blood Cell Count 5.08 10^6/uL (4.20-5.40); Red Cell Dist. Width 14.1 % (11.5-14.5); White Blood Cell Count 10.8 10^3/uL (4.8-10.8)
[2023-12-15 21:10] LABS: ALT (SGPT) 21 U/L (0-35); AST (SGOT) 28 U/L (14-36); Alkaline Phosphatase 87 U/L (38-126); Blood Urea Nitrogen 11 mg/dl (7-17); Calcium 9.7 mg/dl (8.4-10.2); Carbon Dioxide 27 mmol/L (22-30); Chloride 102 mmol/L (98-107); Glucose 123 mg/dl (70-99); Potassium 4.2 mmol/L (3.5-5.1); Sodium 140 mmol/L (135-145); Total Bilirubin 0.7 mg/dl (0.2-1.3); eGFR > 60.00
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
[2023-12-16] MEDS: CLEOCIN 50 IV ×3 (01:51→12:56)
[2023-12-16] MEDS: DECADRON 10 MG IV (01:52)
[2023-12-16 02:27] LABS: Erythrocyte Sed Rate 24 mm/hour (0-20)
[2023-12-16 04:00] VITALS: BP 146/85
--- NOTE | 2023-12-16 04:51 | HPS.HSE ---
Family Physician
-
Family Physician: Claribel Muhammad
Chief Complaint
-
Facial Swelling
History of Present Illness
Patient is an 78y F with PMH significant for hypothyroidism, GERD and anxiety who presents to ED complaining of dental pain and facial swelling. Pateint states that she first appreciated pain in the teeth in the L mandibular region about 5 weeks
ago. She was seen by her dentist and exam was reportedly unremarkable. Her symptoms persisted, but became much worse one week ago. She was again seen by her dentist and advised to schedule a root canal. This is scheduled for tomorrow afternoon.
Patient was placed on Keflex 500mg QID by her dentist.
Patient noted increasing pain in the L jaw area and presented to an Urgent Care on Thursday. She was changed from Keflex to clindamycin 300mg TID.
That evening, patient appreciated increased swelling over the L mandible and continued pain.
Her symptoms have continued to progress and she presented to the ED this evening for further evaluation.
She denies any systemic complaints such as fevers, chills, etc.
Medical History
Past Medical History
Past Medical History: Reports Other
Additional Past Medical History:
Thyroid CA s/p Thyroidectomy
Anxiety/Insomnia
GERD
Past Surgical History: Reports Other
Additional Past Surgical History:
Partial Thyroidectomy
Hysterectomy
Right Rotator Cuff
Right Torn Meniscus
Social History
Tobacco: Former Smoker (Patient reports smoking 1 pack per month, but quit 3 years ago)
Family History
Family History: Not pertinent
Allergies / Home Medications
Allergies reflects when Allergies were last updated in [employer].
Home Medications with original date entered in [employer]
Allergy/Medication List:
Allergies
Allergy/AdvReac Type Severity Reaction Status Date / Time
Penicillins Allergy Rash Verified 12/15/23 20:22
Home Medications
zolpidem 12.5 mg tablet,extended release,multiphase 12.5 mg PO HS Sleep 08/09/12
alprazolam 0.25 mg tablet 0.25 mg PO DAILY PRN anxiety 04/19/22
lansoprazole 30 mg capsule,delayed release 30 mg PO DAILY Gastrointestinal issue 04/19/22
levothyroxine 100 mcg tablet 100 mcg PO Q48H Thyroid 04/19/22
levothyroxine 112 mcg tablet 112 mcg PO Q48H Thyroid 04/19/22
montelukast 10 mg tablet 10 mg PO QPM PRN Allergies 04/19/22
Multi Vitamin 1 tab PO DAILY 10/10/23
furosemide 20 mg tablet (Lasix) 20 mg PO DAILY PRN fluid retention 10/10/23
hydrocodone 5 mg-acetaminophen 325 mg tablet 1 tab PO BID PRN pain 10/10/23
potassium 10 meq PO DAILY PRN lasix 10/10/23
tramadol 50 mg tablet 50 mg PO DAILY PRN Pain 10/10/23
aspirin 81 mg chewable tablet 81 mg PO DAILY 12/16/23
meloxicam 15 mg tablet 15 mg PO DAILY 12/16/23
methocarbamol 500 mg tablet 500 mg PO TID PRN Pain 12/16/23
metolazone 2.5 mg tablet 2.5 mg PO DAILY PRN Swelling 12/16/23
Review of Systems
-
History Source: Patient
Constitutional: Denies Fever, Fatigue or Chills
EENT: Reports Mouth Pain and Other (Face swelling)
Respiratory: Denies Cough or Trouble Breathing
Cardiac: Denies Chest Pain or Palpitations
Abdomen/GI: Denies Abdominal Pain, Nausea, Vomiting or Diarrhea
: Denies Dysuria or Frequency
Musculoskeletal: Reports Other (Neck Pain.); Denies Joint Pain or Edema
Neurological: Reports Headache; Denies Dizzy
Physical Exam
Vital Signs
Vital Signs
Temp Pulse Resp BP Pulse Ox
99.2 F 89 16 146/85 96
12/15/23 20:16 12/16/23 04:00 12/16/23 04:00 12/16/23 04:00 12/16/23 04:00
Physical Exam
General: Other (78y F in no acute distress.)
HEENT: Other (Facial swelling and mild erythema centered over the L mandible area. Pos tenderness. No fluctuance. L mandibular molar with visible cavity / defect.)
Respiratory: Clear; No Wheezes, Rales or Rhonchi
Cardiac: S1/S2 and Regular Rhythm; No Murmur
GI: Soft, Non Tender, Non Distended and Normal Bowel Sounds
Musculoskeletal: No Clubbing, No Cyanosis and Other (2+ piting edema bl/ LEs.)
Neuro: AO x 3
Laboratory Results
-
12/15/23 20:33
12/15/23 20:33
Laboratory Results
Total Bilirubin 0.7 mg/dl (0.2-1.3) 12/15/23 20:33
AST 28 U/L (14-36) 12/15/23 20:33
ALT 21 U/L (0-35) 12/15/23 20:33
Alkaline Phosphatase 87 U/L (38-126) 12/15/23 20:33
Impression/Plan
-
A/P: Patient si an 78y F with PMH significant for hypothyroidism who presents to ED complaining of L facial swelling and dental pain.
Left Mandibular Odontogenic Infection
Left Facial Cellulitis secondary to the above
- Admit for further evaluation and treatment.
- Failed OP abx therapy.
- IV abx with clindamycin for now.
- Follow for clinical improvement.
- Patient will need OP follow-up with dentist for definitive treatment.
Hypothyroidism
- Continue current T4 supplementation.
LE Edema
Polypharmacy
- Patient on very interesting regimen of PRN medications including Lasix and metolazone.
- Will hold all non-essential medications acutely.
- Follow I/Os, daily weights, edema, etc.
- Elevate extremities, SCDs / compression.
DVT Prophylaxis: SCDs
Code Status: Full
[2023-12-16 06:00] VITALS: BP 156/91
[2023-12-16 06:01] VITALS: BP 156/91; BMI 32.0
[2023-12-16 06:06] VITALS: BP 156/91
[2023-12-16] MEDS: SYNTHROID 112 MCG PO (06:34)
[2023-12-16] MEDS: SYNTHROID 100 MCG PO (06:34)
[2023-12-16 07:45] VITALS: BP 137/81
[2023-12-16 08:23] LABS: Hematocrit 41.4 % (37.0-47.0); Mean Corp Hgb Conc. 33.8 g/dL (33.0-37.0); Mean Corpuscular Hgb 28.6 pg (27.0-31.0); Mean Corpuscular Volume 84.5 fL (81.0-99.0); Mean Platelet Volume 10.7 fL (7.4-10.4); Platelet Count 206 10^3/uL (130-400); Red Cell Dist. Width 14.2 % (11.5-14.5); White Blood Cell Count 9.4 10^3/uL (4.8-10.8)
[2023-12-16] MEDS: LOW STRENGTH ASPIRIN 81 MG PO (09:03)
[2023-12-16 09:10] LABS: Blood Urea Nitrogen 12 mg/dl (7-17); Calcium 9.5 mg/dl (8.4-10.2); Carbon Dioxide 25 mmol/L (22-30); Chloride 102 mmol/L (98-107); Estimated Creatinine Clearance 82 ml/min; Glucose 173 mg/dl (70-99); Potassium 4.4 mmol/L (3.5-5.1); Sodium 140 mmol/L (135-145); eGFR > 60.00
--- NOTE | 2023-12-16 10:27 | W.PN.HOSP.TC ---
Today's Communication/Plan
-
Continue IV clindamycin
Potential discharge on oral regimen with close dentistry follow-up today
Assessment / Plan
Assessment / Plan
#Left mandibular odontogenic infection
#Left facial cellulitis
-Symptoms started weeks ago, failed outpatient prescription of Keflex
-Was advised by dentist to come into the hospital for IV antibiotics
-Clinically improving with IV clindamycin, swelling and pain improved this morning
-States that she has a dentist appointment scheduled at 4 PM this afternoon
-Will consider transitioning to oral Bactrim and discharging to dentistry
#Hypothyroidism
-Status post thyroidectomy for previous thyroid cancer, unclear histopathology
-Home regimen includes levothyroxine replacement
-No signs or symptoms of dysfunction at this time
#CVI
#Possible polypharmacy
-Apparently takes as needed Lasix and metolazone for leg edema
-Denies any known history of heart failure or other cardiac disease
-Seems euvolemic at this time, will hold meds at DC until she speaks with primary care
DVT prophylaxis: SCDs
Diet: Clear liquid, advance as tolerated
CODE STATUS: Full code
Anticipated Discharge: Within 24 hours
Subjective/Interval History
-
Date of Service: December 16, 2023
Seen and examined at the bedside. No acute events reported overnight.
She states she feels well, swelling and pain are improved considerably. Denies any fevers or chills overnight. States that she has a dentist appointment for 4 PM today, states she can reschedule it she will remain in the hospital.
She denies chest pain, shortness of breath, nausea, vomiting, diarrhea, constipation, urinary issues, paresthesias or weakness, abnormal bleeding or bruising.
Objective Data
-
Labs:
Laboratory Results
12/16/23
07:07
WBC 9.4
Hgb 14.0
Hct 41.4
Plt Count 206
Sodium 140
Potassium 4.4
Chloride 102
Carbon Dioxide 25
BUN 12
Creatinine 0.6
Glucose 173 H
Calcium 9.5
Vital Signs:
Vital Signs
Temp Pulse Resp BP Pulse Ox
97.9 F 69 18 137/81 96
12/16/23 07:45 12/16/23 07:45 12/16/23 07:45 12/16/23 07:45 12/16/23 07:45
Review of Systems
-
History Source: Patient
All other systems: Reviewed and negative
Physical Exam
-
General: No Apparent Distress, Comfortable, Conversant and Obese
HEENT: Normocephalic, Atraumatic, Moist Mucous Membranes, Anicteric, Neck Non Tender and Other (No cervical adenopathy); Negative Good Dentition (Infected looking molar, left mandible location) or Neck Masses (Fullness to left submandibular region)
Respiratory: Clear to Auscultation and Non Labored Respirations
Cardiac: Regular Rhythm and S1/S2; Negative Murmur, Rub or Gallop
GI: Soft, Nontender, Nondistended and Normal Bowel Sounds
Musculoskeletal: No Clubbing, No Cyanosis and No Edema
Skin: Warm and Dry; Negative Rash
Neuro: AO x 3, Nonfocal/Grossly Intact and Central Nerve's Intact
Data Reviewed
-
Labs: Labs Reviewed by me and Discussed with Patient
[2023-12-16 11:00] VITALS: BP 149/82
--- NOTE | 2023-12-16 15:05 | CM ---
inside sales account manager reviewed patient's chart and patient resides alone in a 2 story home with 3 steps to enter, patient is independent with adl's and ambulation, no dme.
Pharmacy: [facility]
PCP: Dr. Muhammad
Plan; Home no needs.
== END 2023-12-16 14:10 | disposition home or self-care (01) | DRG 158 ==
LOC: 4 WEST ACU 05:33
PROVIDERS: Emergency Medicine; ADMITTING PHYSICIAN Hospitalist; ATTENDING PHYSICIAN Internal Medicine; EMERGENCY PHYSICIAN Student in an Organized Health Care Education/Training Program; FAMILY PHYSICIAN Family Medicine
DX: K04.7 Periapical abscess without sinus (principal); L03.211 Cellulitis of face; E89.0 Postprocedural hypothyroidism; E78.00 Pure hypercholesterolemia, unspecified; F17.200 Nicotine dependence, unspecified, uncomplicated; F41.9 Anxiety disorder, unspecified; G47.00 Insomnia, unspecified; K21.9 Gastro-esophageal reflux disease without esophagitis; G89.29 Other chronic pain; M54.2 Cervicalgia; R60.0 Localized edema; H53.8 Other visual disturbances; Z79.899 Other long term (current) drug therapy; Z85.850 Personal history of malignant neoplasm of thyroid
CPT/HCPCS: 70487; 80048; 80053; 85025; 85027; 85652; 86140; 96374; 96375; 99285; Q9967

== ENCOUNTER → 2023-12-18 12:03 | Outpatient (REF) | payer OTHER, SELFPAY | LOC: MRI 3T 12:03 | PROVIDERS: ATTENDING PHYSICIAN Specialist; FAMILY PHYSICIAN Family Medicine | DX: K85.00 Idiopathic acute pancreatitis without necrosis or infection (principal) | CPT/HCPCS: 74183; A9575 ==

== ENCOUNTER → 2024-02-29 11:09 | Outpatient (REF) | payer OTHER, SELFPAY | LOC: RAD 11:09 | PROVIDERS: FAMILY PHYSICIAN Family Medicine | DX: J18.9 Pneumonia, unspecified organism (principal) | CPT/HCPCS: 71046 ==

== ENCOUNTER → 2024-07-05 11:08 | Outpatient (REF) | payer OTHER, SELFPAY | LOC: WDC 11:08 | PROVIDERS: ATTENDING PHYSICIAN Nurse Practitioner Family; FAMILY PHYSICIAN Family Medicine | DX: Z12.31 Encounter for screening mammogram for malignant neoplasm of breast (principal) | CPT/HCPCS: 77063; 77067 ==

== ENCOUNTER 2024-11-06 04:47 | Inpatient (IN) | payer OTHER, SELFPAY ==
[2024-11-05 22:10] VITALS: BP 167/81
[2024-11-05 22:15] LABS: Hematocrit 44.4 % (37.0-47.0); Hemoglobin 15.3 g/dL (12.0-16.0); Mean Corp Hgb Conc. 34.5 g/dL (33.0-37.0); Mean Corpuscular Volume 83.5 fL (81.0-99.0); Nucleated Red Blood Cells % 0 %; Platelet Count 211 10^3/uL (130-400); Red Cell Dist. Width 13.8 % (11.5-14.5)
[2024-11-05 22:43] LABS: Troponin I < 0.012 ng/ml
[2024-11-05 22:46] LABS: ALT (SGPT) 25 U/L (0-35); AST (SGOT) 35 U/L (14-36); Albumin 4.4 g/dl (3.5-5.0); Alkaline Phosphatase 72 U/L (38-126); Blood Urea Nitrogen 26 mg/dl (7-17); Calcium 10.1 mg/dl (8.4-10.2); Carbon Dioxide 29 mmol/L (22-30); Chloride 105 mmol/L (98-107); Glucose 120 mg/dl (70-99); Potassium 3.7 mmol/L (3.5-5.1); Sodium 139 mmol/L (135-145); Total Protein 7.6 g/dl (6.3-8.2); eGFR > 60.00
[2024-11-05] MEDS: ZOFRAN 4 MG IV (23:49)
[2024-11-05] MEDS: DILAUDID 1 MG IV (23:49)
[2024-11-05] MEDS: NSS 500 IV (23:49)
[2024-11-06] VITALS (12 sets, daily range): BP systolic 165–180; BP diastolic 79–104; BMI 38.3; BMI 35.1
[2024-11-06] MEDS: DILAUDID 0.5 MG IV ×6 (02:13→20:16)
[2024-11-06] MEDS: ZOFRAN 4 MG IV ×4 (02:13→21:47)
--- NOTE | 2024-11-06 02:25 | ED.GENMED ---
History of Present Illness
<Gregorio Herrera DO - Last Filed: 11/06/24 02:26>
General
Chief Complaint: Chest Pain
Time Seen by Provider: 11/05/24 23:14
History of Present Illness
History of Present Illness:
Note:
CHIEF COMPLAINT(S)
Abdominal pain.
HISTORY OF PRESENT ILLNESS
The patient is an 79-year-old female who presented with severe abdominal pain that started following the consumption of onions. She described feeling 'sick as a dog' afterward. The pain was primarily noted in the upper and lower abdomen and was
described as 'horrendous.' She denied having experienced reflux pain of this severity before. The pain was diffusely located, with the worst being in the upper mid-abdominal area. She reported feeling bloated and distended. There were no associated
fevers mentioned.
PAST SURGICAL HISTORY
She confirmed having had an unspecified previous surgery, described as hysterectomy
MEDICATIONS
- Levothyroxine
- Lansoprazole
- Hydrocodone
- Ferrous sulfate
- Furosemide
- Zolpidem
- Alprazolam
- Methocarbamol
- Tramadol
- Meloxicam
- Friendship fatty acids
REVIEW OF SYSTEMS
- Gastrointestinal: Severe abdominal pain, bloating, tenderness.
PHYSICAL EXAM
General: Alert, moderate pain.
Skin: Warm, dry.
Head: Normocephalic, atraumatic.
Neck: Supple, trachea midline.
Eye, Ears, Nose, Mouth, and Throat: Oral mucosa moist.
Cardiovascular: Heart rate is regular, normal peripheral perfusion, no edema.
Respiratory: Respirations are non-labored.
Gastrointestinal: Abdomen distended with hyperactive bowel sounds, moderate diffuse tenderness, severe tenderness in the upper mid-abdomen.
Back: Normal range of motion, normal alignment.
Musculoskeletal: Normal ROM, normal strength.
Neurological: Alert and oriented to person, place, time, and situation, no focal neurological deficit observed.
Psychiatric: Cooperative, appropriate mood & affect.
PROBLEM LIST
- Acute abdominal pain
- Abdominal distention
PLAN
- Administer pain medication for symptom relief.
- Obtain imaging studies to further evaluate abdominal pain.
- Perform blood tests, including lactic acid levels.
DIFFERENTIAL DIAGNOSIS
The Differential Diagnosis includes, in no particular order and is not limited to:
1. Cholecystitis
2. Pancreatitis
3. Gastroesophageal reflux disease
4. Peptic ulcer disease
5. Gallstones
6. Small bowel obstruction
7. Abdominal aortic aneurysm
8. Acute gastritis
9. Mesenteric ischemia
10. Diverticulitis
Disposition:
SUMMARY OF ENCOUNTER
The patient, an 79-year-old female, presented to the emergency department with severe mid-abdominal pain. Upon review, the laboratory results revealed leukocytosis, indicating an elevated white blood cell count, although lactic acid levels were
normal. The patient has a history of pancreatitis, which may be relevant to the current symptoms. A lipase test result and CT scan are pending. The patient required intravenous line replacement for potential further imaging and continued pain
management. Given the severity of symptoms and ongoing investigation, her admission is anticipated. Patient also has a history of superior mesenteric vein thrombosis.
DISPOSITION
Anticipated admission.
ASSESSMENT
The current assessment suggests a high likelihood of an abdominal process, potentially pancreatitis or another acute abdominal condition, based on the patients history and current presentation, which includes leukocytosis and significant abdominal
pain.
PLAN
Continue with pain management, complete pending imaging, and laboratory work, and accommodate anticipated admission for further evaluation and management.
INDEPENDENT REVIEW OF LABS AND INTERPRETATION OF TESTS
My independent review indicates leukocytosis and normal lactic acid levels among the performed lab tests.
MEDICATION RECONCILIATION
Continued pain management as administered, with specifics on medications pending further assessment.
MEDICAL DECISION MAKING
-Complexity of Data Reviewed: Chronic conditions affecting care include past history of pancreatitis. Considered differential diagnoses include pancreatitis, cholecystitis, gallstones, abdominal aortic aneurysm, and other acute abdominal conditions.
-Data:
Category 1: Reviewed leukocytes indicating leukocytosis, normal lactic acid indicated. Lipase and CT imaging pending to assist in diagnosis.
-Risk: Admission consideration due to potential acute life-threatening abdominal process.
DIAGNOSIS
Acute abdominal pain, possible pancreatitis (ICD-10-CM R10.0, K85.9).
Past History
<Gregorio Herrera, DO - Last Filed: 11/06/24 02:26>
Past History
ED Past Medical History: GERD, Hypercholesterolemia, Hypothyroidism (s/p partial thyroidectomy), Psychiatric (Anxiety disorder), Other (Migraine headaches), Other (Cerebral venous thrombosis) and Other (Herniated lumbar disc)
ED Past Surgical History: Orthopedic and Other (Eye surgery, cataract surgery, partial thyroidectomy); Negative Appendectomy, Bowel resection or Cholecystectomy
Social History
Tobacco: Smoker
Alcohol: Occasional (1-2 drinks every 1-2 weeks)
Drug: None
Personal:
Living: with family
Employment: Retired
Phy Exam
<Daniela Valderrama DO - Last Filed: 11/06/24 03:36>
Physical Exam
Physical Exam:
see above
Scores
<Daniela Valderrama DO - Last Filed: 11/06/24 03:36>
Heart Score for Chest Pain Patients
STEMI patient?: Not applicable
Course
<Gregorio Herrera DO - Last Filed: 11/06/24 02:26>
Orders/Labs/Results
Orders:
Orders
11/05/24 22:01
EKG [Electrocardiogram (*1)] Urgent
Reason for Study: Chest Pain
EKG- Treatment ONCE
11/05/24 22:07
Complete Blood Count/With Diff Urgent
Comprehensive Metabolic Panel Urgent
Troponin I Urgent
11/05/24 23:40
0.9% Sodium Chloride 500 ml [Nss] 500 ml IV BOLUS
HYDROmorphone [Dilaudid] 1 mg IV NOW STA
Ondansetron Injectable [Zofran] 4 mg IV NOW STA
11/05/24 23:48
Lactic Acid Urgent
11/06/24 00:19
Add On- LAB Urgent
Tests Added?: lipase
11/06/24 00:35
CT Abd/pelvis W Iv Cont Urgent
Comment:
Reason For Exam: severe mid abd pain
11/06/24 01:49
Lipase Urgent
11/06/24 02:11
HYDROmorphone [Dilaudid] 0.5 mg IV NOW STA
Ondansetron Injectable [Zofran] 4 mg IV NOW STA
11/06/24 02:12
HYDROmorphone [Dilaudid] 0.5 mg .ROUTE .STK-MED ONE
Ondansetron Injectable [Zofran] 4 mg .ROUTE .STK-MED ONE
11/06/24 03:33
HYDROmorphone [Dilaudid] 0.5 mg IV NOW STA
11/06/24 03:34
0.9% Sodium Chloride 1000 ml [Nss] 1,000 ml IV 200 mls/hr
Abnormal Lab Results
11/05/24 11/06/24
22:07 01:49
WBC 15.0 H 10^3/uL
(4.8-10.8)
Abs Immat Gran (auto) 0.1 H 10^3/uL
(0-0.05)
Absolute Neuts (auto) 9.9 H 10^3/uL
(1.4-6.5)
Absolute Lymphs (auto) 3.9 H 10^3/uL
(1.2-3.4)
Absolute Monos (auto) 1.0 H 10^3/uL
(0.1-0.6)
Immature Gran % 0.6 H %
(0-0.5)
BUN 26 H mg/dl
(7-17)
Glucose 120 H mg/dl
(70-99)
Lipase > 4000 H* U/L
(23-300)
11/05/24 22:07
11/05/24 22:07
Vital Signs
Initial and Last Documented VS:
Initial Vital Signs
Temp Pulse Resp BP Pulse Ox
98.7 F 58 18 167/81 98
11/05/24 22:10 11/05/24 22:10 11/05/24 22:10 11/05/24 22:10 11/05/24 22:10
Last Documented Vital Signs
Temp Pulse Resp BP Pulse Ox
98.7 F 62 18 177/82 95
11/05/24 22:10 11/06/24 01:48 11/06/24 01:45 11/06/24 03:22 11/06/24 02:26
<Daniela Valderrama, DO - Last Filed: 11/06/24 03:36>
Orders/Labs/Results
Orders:
Orders
11/05/24 22:01
EKG [Electrocardiogram (*1)] Urgent
Reason for Study: Chest Pain
EKG- Treatment ONCE
11/05/24 22:07
Complete Blood Count/With Diff Urgent
Comprehensive Metabolic Panel Urgent
Troponin I Urgent
11/05/24 23:40
0.9% Sodium Chloride 500 ml [Nss] 500 ml IV BOLUS
HYDROmorphone [Dilaudid] 1 mg IV NOW STA
Ondansetron Injectable [Zofran] 4 mg IV NOW STA
11/05/24 23:48
Lactic Acid Urgent
11/06/24 00:19
Add On- LAB Urgent
Tests Added?: lipase
11/06/24 00:35
CT Abd/pelvis W Iv Cont Urgent
Comment:
Reason For Exam: severe mid abd pain
11/06/24 01:49
Lipase Urgent
11/06/24 02:11
HYDROmorphone [Dilaudid] 0.5 mg IV NOW STA
Ondansetron Injectable [Zofran] 4 mg IV NOW STA
11/06/24 02:12
HYDROmorphone [Dilaudid] 0.5 mg .ROUTE .STK-MED ONE
Ondansetron Injectable [Zofran] 4 mg .ROUTE .STK-MED ONE
11/06/24 03:33
HYDROmorphone [Dilaudid] 0.5 mg IV NOW STA
11/06/24 03:34
0.9% Sodium Chloride 1000 ml [Nss] 1,000 ml IV 200 mls/hr
Abnormal Lab Results
11/05/24 11/06/24
22:07 01:49
WBC 15.0 H 10^3/uL
(4.8-10.8)
Abs Immat Gran (auto) 0.1 H 10^3/uL
(0-0.05)
Absolute Neuts (auto) 9.9 H 10^3/uL
(1.4-6.5)
Absolute Lymphs (auto) 3.9 H 10^3/uL
(1.2-3.4)
Absolute Monos (auto) 1.0 H 10^3/uL
(0.1-0.6)
Immature Gran % 0.6 H %
(0-0.5)
BUN 26 H mg/dl
(7-17)
Glucose 120 H mg/dl
(70-99)
Lipase > 4000 H* U/L
(23-300)
11/05/24 22:07
11/05/24 22:07
Vital Signs
Initial and Last Documented VS:
Initial Vital Signs
Temp Pulse Resp BP Pulse Ox
98.7 F 58 18 167/81 98
11/05/24 22:10 11/05/24 22:10 11/05/24 22:10 11/05/24 22:10 11/05/24 22:10
Last Documented Vital Signs
Temp Pulse Resp BP Pulse Ox
98.7 F 62 18 177/82 95
11/05/24 22:10 11/06/24 01:48 11/06/24 01:45 11/06/24 03:22 11/06/24 02:26
<Gregorio Herrera DO - Last Filed: 11/06/24 02:26>
*Pulse Oximetry
SaO2: 95
Oxygen Mode of Delivery: Room air
Patient hypoxic: no
*Critical Care Note
Total Time (30-74mins, 75-104mins- exclusive of procedures): Not Applicable
<Daniela Valderrama DO - Last Filed: 11/06/24 03:36>
*Radiology
Radiology exam reviewed: radiology read reviewed
<Daniela Valderrama DO - Last Filed: 11/06/24 03:36>
Update Note
Update Note:
03:30
CAT scan shows acute pancreatitis involving the pancreatic head and neck that is increased compared to previous CAT scan September 2023.
Lipase greater than 4000.
Will continue IV fluids, IV pain medication. N.p.o. status.
Will admit to hospitalist service.
ED Attending Note
<Gregorio Herrera DO - Last Filed: 11/06/24 02:26>
-
Portions of this chart may have been created with voice recognition software.� Occasional wrong word or��sound alike� substitutions may have occurred due to the inherent limitations of voice recognition software.
Discharge Plan
Departure
Patient Disposition: Admit
Date of Disposition: 11/06/24
Time of Disposition: 03:29
Admit to: Med/Surg
Admit to doctor: [place]
Presentation/result/management discussed w/ accepting MD/DO: Hospitalist
Condition: Fair
Discharge Problem:
Acute pancreatitis
Prescriptions:
No Action
zolpidem 12.5 MG tablet,ext release multiphase
12.5 mg PO HS
Patient Comments:
04/19/2022: last filled 04/04/22, 30 tabs for 30 days from [facility]
levothyroxine 100 mcg tablet
100 mcg PO Q48H
alprazolam 0.25 mg tablet
0.25 mg PO DAILY PRN (Reason: anxiety)
Patient Comments:
04/19/2022: last filled 04/04/22, 30 tabs for 30 days from [facility]
montelukast 10 mg Tablet
10 mg PO QPM PRN (Reason: Allergies)
lansoprazole 30 mg capsule,delayed release(DR/EC)
30 mg PO DAILY
levothyroxine 112 mcg tablet
112 mcg PO Q48H
hydrocodone-acetaminophen 5-325 mg Tablet
1 tab PO BID PRN (Reason: pain)
tramadol 50 mg Tablet
50 mg PO DAILY PRN (Reason: Pain)
furosemide [Lasix] 20 mg Tablet
20 mg PO DAILY PRN (Reason: fluid retention)
Multi Vitamin
1 tab PO DAILY
potassium
10 meq PO DAILY PRN (Reason: lasix)
metolazone 2.5 mg Tablet
2.5 mg PO DAILY PRN (Reason: Swelling)
methocarbamol 500 mg Tablet
500 mg PO TID PRN (Reason: Pain)
meloxicam 15 mg Tablet
15 mg PO DAILY
aspirin 81 mg Tablet,Chewable
81 mg PO DAILY
clindamycin HCl 300 mg capsule
300 mg PO TID 9 Days Qty: 27 0RF
Referrals:
Claribel Muhammad DO [Family Provider, Family Practice]
Interventions
Interventions:
*Risk Screen - Suicide Last Done: 11/05/24 22:10
*General Assessment Last Done: 11/05/24 22:10
*Neglect/Abuse Screening Last Done: 11/05/24 22:10
*ED- Fall Risk Assessment Last Done: 11/05/24 22:10
*ED COVID-19 Vaccine History Last Done: 11/05/24 22:10
ED- Cardiac Assessment Last Done: 11/05/24 23:04
Discharge Date and Time
Print Language: TURKMEN
[2024-11-06 02:37] LABS: Lipase > 4000 U/L (23-300)
[2024-11-06] MEDS: NSS 1000 IV ×3 (03:45→17:45)
--- NOTE | 2024-11-06 04:02 | HPS.HSE ---
Family Physician
-
Family Physician: Claribel Muhammad
Chief Complaint
-
abdominal pain
History of Present Illness
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
department with abdominal pain.
She reports onset of severe abdominal pain following consumption of greasy soup. Reports the pain was most intense in the upper and mid abdominal area without any radiation. She reports feeling bloated and distended. 2 episodes of non-bilious and
non-bloody emesis. She denies any diarrhea. She reports history of reflux but denies disease of severity of reflux before. She denies any nausea or vomiting.
In the emergency department she was hypertensive to 170/80 with a pulse rate of 62 when she was satting 98% on room air. She was afebrile. ECG showed sinus regular rate of 56, troponin was negative. Lipase was over 4000. LFTs otherwise normal.
Electrolytes BUN/creatinine were all normal. She has a white count of 15 CBC shows a hemoglobin of 15 and a normal platelet count of 211.
CT of the abdomen pelvis showing acute pancreatitis involving the pancreatic head and neck, no peripancreatic fluid collection, no biliary ductal dilation and no evidence of gallstones.
Medical History
Past Medical History
Past Medical History: Reports Other
Additional Past Medical History:
Thyroid CA s/p Thyroidectomy
Anxiety/Insomnia
GERD
Idiopathic pancreatitis
Past Surgical History: Reports Other
Additional Past Surgical History:
Partial Thyroidectomy
Hysterectomy
Right Rotator Cuff
Right Torn Meniscus
Social History
Tobacco: Former Smoker (Patient reports smoking 1 pack per month, but quit 3 years ago)
Family History
Family History: Not pertinent
Allergies / Home Medications
Allergies reflects when Allergies were last updated in [facility].
Home Medications with original date entered in [facility]
Allergy/Medication List:
Allergies
Allergy/AdvReac Type Severity Reaction Status Date / Time
Penicillins Allergy Rash Verified 12/15/23 20:22
Home Medications
zolpidem 12.5 mg tablet,extended release,multiphase 12.5 mg PO HS Sleep 08/09/12
alprazolam 0.25 mg tablet 0.25 mg PO DAILY PRN anxiety 04/19/22
lansoprazole 30 mg capsule,delayed release 30 mg PO DAILY Gastrointestinal issue 04/19/22
levothyroxine 100 mcg tablet 100 mcg PO Q48H Thyroid 04/19/22
levothyroxine 112 mcg tablet 112 mcg PO Q48H Thyroid 04/19/22
montelukast 10 mg tablet 10 mg PO QPM PRN Allergies 04/19/22
Multi Vitamin 1 tab PO DAILY 10/10/23
furosemide 20 mg tablet (Lasix) 20 mg PO DAILY PRN fluid retention 10/10/23
hydrocodone 5 mg-acetaminophen 325 mg tablet 1 tab PO BID PRN pain 10/10/23
potassium 10 meq PO DAILY PRN lasix 10/10/23
tramadol 50 mg tablet 50 mg PO DAILY PRN Pain 10/10/23
aspirin 81 mg chewable tablet 81 mg PO DAILY 12/16/23
meloxicam 15 mg tablet 15 mg PO DAILY 12/16/23
methocarbamol 500 mg tablet 500 mg PO TID PRN Pain 12/16/23
metolazone 2.5 mg tablet 2.5 mg PO DAILY PRN Swelling 12/16/23
Review of Systems
-
Constitutional: Reports No Symptoms
EENT: Reports No Symptoms
Respiratory: Reports No Symptoms
Cardiac: Reports No Symptoms
Abdomen/GI: Reports Abdominal Pain
: Reports No Symptoms
Musculoskeletal: Reports No Symptoms
Skin: Reports No Symptoms
Neurological: Reports No Symptoms
Endocrine: Reports No Symptoms
Hematologic/Lymphatic: Reports No Symptoms
Psych: Reports No Symptoms
Physical Exam
Vital Signs
Vital Signs
Temp Pulse Resp BP Pulse Ox
98.7 F 62 18 177/82 95
11/05/24 22:10 11/06/24 01:48 11/06/24 01:45 11/06/24 03:22 11/06/24 02:26
Physical Exam
General: Well Developed, Well Nourished and No Apparent Distress
HEENT: NormoCephalic, Moist mucous membranes and Atraumatic
Respiratory: Clear
Cardiac: S1/S2 and Regular Rhythm; No Murmur or Rub
GI: Soft, Non Tender, Non Distended and Normal Bowel Sounds; No Organomegaly
Rectal: Deferred by Provider
Musculoskeletal: No Clubbing, No Cyanosis and No Edema
Skin: No Rash
Neuro: Nonfocal/grossly intact
Laboratory Results
-
11/05/24 22:07
11/05/24 22:07
Laboratory Results
Lactic Acid 1.2 mmol/L (0.7-2.0) 11/05/24 23:48
Total Bilirubin 0.6 mg/dl (0.2-1.3) 11/05/24 22:07
AST 35 U/L (14-36) 11/05/24 22:07
ALT 25 U/L (0-35) 11/05/24 22:07
Alkaline Phosphatase 72 U/L (38-126) 11/05/24 22:07
Troponin I < 0.012 ng/ml 11/05/24 22:07
Lipase > 4000 U/L (23-300) H* 11/06/24 01:49
Data Reviewed
-
CT Scan: Report Reviewed by me
Medical Tests (Nuc Med, Echo, EKG etc): Image Personally Visualized and interpreted
Lab Data: Labs Reviewed by me
Old Records: Reviewed
Impression/Plan
-
IMPRESSION:
79-year-old presented to the emergency department with mid abdominal and upper abdominal pain after consumption of onions. Found to have acute pancreatitis by lipase greater than 2000 in ED. LFTs were normal. The rest of her labs are
unremarkable. CT scan consistent with acute pancreatitis of the head of the pancreas without necrosis or peripancreatic fluid collection. No, bile duct dilation and no evidence of gallstones in the gallbladder. Picture consistent with her prior
diagnosis of idiopathic pancreatitis. She extensive evaluation a year ago with no clear etiological reason. 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 Reactive
leukocytosis suspected.
PLAN:
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 AC held. No evidence of GB stones,
no hx of stones. Patient continues with occasional etoh but denies any recent use. Had a large greasy soup prior to this episode.
- admit to med/surg
- npo except meds/icechips
- pain control and antiemetics
- gentle hydration
- trend lfts
- given studies performed previously will consult GI
- holding prn metolazone and furosemide
DVT PPX lovenox sq
Code status - Full code
Acute pancreatitis, second episode
-CT/MRI imaging showing superior mesenteric vein thrombosis, mild PD dilation. Reviewed SMVT with radiology- significantly improved, still some stenosis proximally but occlusive filling defect no longer seen. Will hold on anticoagulation at this
time
-Mild leukocytosis, likely reactive
-Occasional alcohol use
[2024-11-06] MEDS: SYNTHROID 100 MCG PO (06:09)
--- NOTE | 2024-11-06 07:33 | W.PN.UPDATE ---
Update Note
Progress Note Update
Patient seen and examined. Agree with hospitalist H&P.
Appreciate GI input, patient with recurrent acute pancreatitis, workup in 2023 negative.
GI recommends IV fluids, bowel rest, MiraLAX for constipation.
Continue supportive care, monitor.
[2024-11-06] MEDS: PROTONIX 40 MG PO (08:27)
[2024-11-06] MEDS: LOW STRENGTH ASPIRIN 81 MG PO (08:27)
--- NOTE | 2024-11-06 08:29 | CON.GI ---
Addendum entered and electronically signed by Mee Wisdom Do, MD 11/06/24 15:00:
I saw and evaluated the patient. I reviewed the resident�s note and agree with findings and plan as documented in the resident�s note.
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 She denies any triggers. She denies ETOH. She is on opioids for chronic back pain. She is constipated. Vitals stable
AF sleeping arousable TTP diffusely no guarding rebound. Labs reviewed WBC 15 lipase >4000 normal LFTs TG normal. CTAP IV contrast shows acute pancreatitis with peripancreatic fluid collection no biliary dilation, contracted GB.
Impression
- Recurrent acute pancreatitis
Work up in 2023 neg IGG4, TG. No new meds
She denies ETOH
- H/o SMV thrombosis
- Chronic back pain on vicodin
- Constipation
- h/o thyroid cancer
- GERD
- Anxiety
Recommendations
- C/w IVF NS at 100ml/hr
- Pain management and antiemetics per primary team
- Bowel rest for now
- Miralax for constipation
- TG normal, IGG4 in past neg and alcohol level neg
Will follow with you
Original Note:
Consultation
-
Date/Time Consultation Requested: 11/06/2024
Date/Time Consultation Performed: 11/06/2024
Medical History
Chief Complaint / HPI
Chief Complaint: Abdominal pain associated with nausea and vomiting
History of Present Illness:
Patient is an 79-year-old female with past medical history significant for hyperlipidemia, history of recurrent pancreatitis, who presented with chief complaint of abdominal pain associated with nausea and vomiting. She was in her usual state of
health, she went out for dinner around 4:30 PM yesterday and had baked cheese soup that was very greasy, as soon as she finished the soup, she developed nausea and she had some bloating, she had some seafood after that although she did not feel
good, later she developed pain in her abdomen that was diffuse , progressive, 7/10 in intensity and was burning in nature. She called emergency services and had multiple episodes of vomiting on her way to the ED. She said the vomitus contained
mostly the food she had for dinner, denies hematemesis. Since arrival to the ER she had no further episodes of vomiting. Mostly she has nausea now, regurgitation and no appetite.
She takes hydrocodone for chronic back pain but denies any use of NSAIDs. She reports her bowel habits are regular, last bowel movement yesterday. No recent change in medications and she was not taking any new supplements. She denies any
diarrhea, hematochezia, hematemesis, melena or any weight loss.
Past Medical History
Past Medical History: Other (Thyroid CA s/p Thyroidectomy Anxiety/Insomnia GERD Idiopathic pancreatitis, venous thrombosis-Coumadin)
Social History
Tobacco: Former Smoker ((Patient reports smoking 1 pack per month, but quit 3 years ago))
Alcohol: Occasional
Drug: None
Personal: Single
Living: Alone
Employment: Not Employed
Family History
Family History: Reviewed & Not Pertinent (Denies any family history of lung cancer, gastric cancer, esophageal cancer, IBD disease or celiac disease)
Allergies / Home Medications
Allergy/AdvReac Type Severity Reaction Status Date / Time
Penicillins Allergy Rash Verified 11/05/24 22:12
�Medication �Instructions �Recorded
zolpidem 12.5 mg tablet,extended 12.5 mg PO HS Sleep 08/09/12
release,multiphase
alprazolam 0.25 mg tablet 0.25 mg PO DAILY PRN anxiety 04/19/22
lansoprazole 30 mg capsule,delayed 30 mg PO DAILY Gastrointestinal 04/19/22
release issue
levothyroxine 100 mcg tablet 100 mcg PO Q48H Thyroid 04/19/22
levothyroxine 112 mcg tablet 112 mcg PO Q48H Thyroid 04/19/22
montelukast 10 mg tablet 10 mg PO QPM PRN Allergies 04/19/22
Multi Vitamin 1 tab PO DAILY Supplement 10/10/23
furosemide 20 mg tablet (Lasix) 20 mg PO DAILY PRN fluid retention 10/10/23
hydrocodone 5 mg-acetaminophen 325 1 tab PO BID PRN pain 10/10/23
mg tablet
potassium 10 meq PO DAILY PRN lasix 10/10/23
tramadol 50 mg tablet 50 mg PO DAILY PRN Pain 10/10/23
aspirin 81 mg chewable tablet 81 mg PO DAILY Blood Clot 12/16/23
Prevention/Tx
clindamycin HCl 300 mg capsule 300 mg PO TID Oral infection, 12/16/23
cellulitis 9 days #27 caps
meloxicam 15 mg tablet 15 mg PO DAILY Pain 12/16/23
Held on 12/16/23.
Instructions: Until you see
family doctor
methocarbamol 500 mg tablet 500 mg PO TID PRN Pain 12/16/23
metolazone 2.5 mg tablet 2.5 mg PO DAILY PRN Swelling 12/16/23
Held on 12/16/23.
Instructions: Until you seem
family doc
Review of Systems
-
All other systems: A 12 pt ROS was Negative except as stated above in HPI
Vital Signs
Temp Pulse Resp BP Pulse Ox
98.6 F 69 15 180/89 96
11/06/24 07:25 11/06/24 07:25 11/06/24 07:25 11/06/24 07:25 11/06/24 07:25
Physical Exam
Exam
General: Well Developed and Other (Morbidly obese with a BMI of 38)
HEENT: Anicteric and Moist Mucous Membranes
Respiratory: Clear
Cardiac: S1/S2 and Regular Rhythm
GI: Soft, Normal Bowel Sounds, Tender (Diffusely) and Other (Scar eugenoi of hysterectomy, no hernias)
Musculoskeletal: No Clubbing, No Cyanosis and No Edema
Neuro: Awake and Nonfocal/Grossly Intact
Results
WBC 15.0 10^3/uL (4.8-10.8) H 11/05/24 22:07
Hgb 15.3 g/dL (12.0-16.0) 11/05/24 22:07
Hct 44.4 % (37.0-47.0) 11/05/24 22:07
MCV 83.5 fL (81.0-99.0) 11/05/24 22:07
Plt Count 211 10^3/uL (130-400) 11/05/24 22:07
Absolute Neuts (auto) 9.9 10^3/uL (1.4-6.5) H 11/05/24 22:07
Sodium 139 mmol/L (135-145) 11/05/24 22:07
Potassium 3.7 mmol/L (3.5-5.1) 11/05/24 22:07
Chloride 105 mmol/L (98-107) 11/05/24 22:07
Carbon Dioxide 29 mmol/L (22-30) 11/05/24 22:07
BUN 26 mg/dl (7-17) H 11/05/24 22:07
Creatinine 0.7 mg/dL (0.6-1.0) 11/05/24 22:07
Calcium 10.1 mg/dl (8.4-10.2) 11/05/24 22:07
Total Bilirubin 0.6 mg/dl (0.2-1.3) 11/05/24 22:07
AST 35 U/L (14-36) 11/05/24 22:07
ALT 25 U/L (0-35) 11/05/24 22:07
Alkaline Phosphatase 72 U/L (38-126) 11/05/24 22:07
Lipase > 4000 U/L (23-300) H* 11/06/24 01:49
Diagnostic Image Results:
10/10/23 CT AP- Acute interstitial edematous pancreatitis.
08/13/23 MRI- Subacute complete thrombosis of SMV with mild edema and inflammation SB mesentery mildly decreased since
07/07/23. Mild biliary and pancreatic duct dilation without evidence stone or mass. Mild hepatic steatosis. Severe DDD L and lower T spine.07/07/23 CT AP- New inflammatory stranding about pancreatic head and neck with inflammatory stranding SB
mesentery, mildly enlarged LN and SMV thrombosis c/w acute pancreatitis. Ill-definition of uncinate but no discrete lesion identified.
Prior GI Procedures:
EGD:
none
Colonoscopy:
2020
Impression: - One 4 mm polyp in the ascending colon, removed with
a cold snare. Resected and retrieved.
- Three diminutive polyps in the sigmoid colon and in
the transverse colon, removed with a jumbo cold
forceps. Resected and retrieved.
- Diverticulosis in the sigmoid colon and in the
ascending colon.
2015
Impression: - One 4 mm polyp in the ascending colon, removed with
a cold snare. Resected and retrieved.
- Three diminutive polyps in the sigmoid colon and in
the transverse colon, removed with a jumbo cold
forceps. Resected and retrieved.
- Diverticulosis in the sigmoid colon and in the
ascending colon.
Assessment / Plan
-
Impression
Recurrent idiopathic pancreatitis
Patient denies overt alcohol use, no evidence of gallstones, history of pancreatic duct dilatation-EUS/ERCP pending to evaluate for any mass/pancreatic stricture secondary to recurrent pancreatitis
Leukocytosis, most likely reactive
GERD
Chronic pain on chronic opioids
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
History of thyroid cancer status post thyroidectomy-currently on thyroxine
Anxiety
Hypertension
Recommendations
Check triglyceride levels
Keep n.p.o.
Continue IV fluids
Patient does not appear toxic-no need of antibiotics at this time
Monitor hematocrit, BUN, calcium levels
Symptomatic management with adequate pain control and antiemetics
-
-
Thank you for consultation and allowing me to participate in the patient's care. Please call the semiconductor wafers etch operator GI physician during the after hours with any questions or concerns.
[2024-11-06 11:44] LABS: Very Low Density Lipoprotein 28 mg/dl (0-30)
[2024-11-06 11:45] LABS: HDL Cholesterol 56 mg/dl; LDL Cholesterol, Calculated 150 mg/dl
[2024-11-06 11:47] LABS: TSH 0.35 uIU/ml (0.47-4.68)
[2024-11-06] MEDS: TYLENOL 650 MG PO (13:58)
[2024-11-06] MEDS: SENOKOT-S 1 TABLET PO (14:07)
[2024-11-06] MEDS: ROXICODONE 5 MG PO (17:45)
[2024-11-06] MEDS: LOVENOX 40 MG SC (17:45)
[2024-11-06] MEDS: AMBIEN 10 MG PO (21:41)
[2024-11-07] MEDS: DILAUDID 0.5 MG IV ×6 (01:25→23:11)
[2024-11-07] MEDS: NSS 1000 IV ×2 (04:33→12:07)
[2024-11-07] MEDS: SYNTHROID 112 MCG PO (06:15)
[2024-11-07 07:51] VITALS: BP 171/99
[2024-11-07] MEDS: LOW STRENGTH ASPIRIN 81 MG PO (07:52)
[2024-11-07] MEDS: PROTONIX 40 MG PO (07:52)
[2024-11-07] MEDS: MIRALAX 17 GRAMS PO (07:53)
[2024-11-07 08:10] LABS: Hematocrit 42.6 % (37.0-47.0); Hemoglobin 14.7 g/dL (12.0-16.0); Mean Corp Hgb Conc. 34.5 g/dL (33.0-37.0); Mean Corpuscular Volume 83.5 fL (81.0-99.0); Platelet Count 234 10^3/uL (130-400); Red Cell Dist. Width 14.3 % (11.5-14.5)
[2024-11-07 08:54] LABS: Blood Urea Nitrogen 16 mg/dl (7-17); Calcium 8.3 mg/dl (8.4-10.2); Carbon Dioxide 26 mmol/L (22-30); Chloride 107 mmol/L (98-107); Estimated Creatinine Clearance 81 ml/min; Glucose 116 mg/dl (70-99); Lipase 903 U/L (23-300); Magnesium 2.2 mg/dl (1.6-2.3); Potassium 3.8 mmol/L (3.5-5.1); Sodium 137 mmol/L (135-145); eGFR > 60.00
[2024-11-07] MEDS: SENOKOT-S 1 TABLET PO ×2 (11:09→23:04)
--- NOTE | 2024-11-07 14:57 | W.PN.GI.CBS2 ---
Today's Communication / Plan
-
Full liquid diet
c/w miralax
Will follow with you
Assessment / Plan
-
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 She denies any triggers. She denies ETOH. She is on opioids for chronic back pain. She is constipated. Vitals stable
AF sleeping arousable TTP diffusely no guarding rebound. Labs reviewed WBC 15 lipase >4000 normal LFTs TG normal. CTAP IV contrast shows acute pancreatitis with peripancreatic fluid collection no biliary dilation, contracted GB.
Impression
- Recurrent acute pancreatitis
3rd lifetime episode
Work up in 2023 neg IGG4, TG. No new meds
She denies ETOH
- H/o SMV thrombosis
- Chronic back pain on vicodin
- Constipation
- h/o thyroid cancer
- GERD
- Anxiety
Recommendations
- C/w IVF NS at 100ml/hr
- Adv to full liquid diet
- Pain management and antiemetics per primary team
- Miralax for constipation
- TG normal, IGG4 in past neg and alcohol level neg
Will follow with you
Subjective
Subjective
Date of Service: November 07, 2024
Her abd pain improving. Denies nausea/vomiting.
Objective
Data Reviewed
Laboratory Data:
Laboratory Results
11/07/24 07:44
11/07/24 07:44
Laboratory Results
Phosphorus 2.8 mg/dl (2.5-4.5) 11/07/24 07:44
Magnesium 2.2 mg/dl (1.6-2.3) 11/07/24 07:44
Total Bilirubin 0.6 mg/dl (0.2-1.3) 11/05/24 22:07
AST 35 U/L (14-36) 11/05/24 22:07
ALT 25 U/L (0-35) 11/05/24 22:07
Alkaline Phosphatase 72 U/L (38-126) 11/05/24 22:07
Lipase 903 U/L (23-300) H 11/07/24 07:44
Vital Signs and I&O:
Vital Signs
Temp Pulse Resp BP Pulse Ox
98.8 F 94 18 171/99 98
11/07/24 07:51 11/07/24 07:51 11/07/24 07:51 11/07/24 07:51 11/07/24 07:51
I&O
11/06/24 11/07/24 11/08/24
06:59 06:59 06:59
Intake Total 1000 / 1000
Output Total 0 / 0
Balance 1000 / 1000
Physical Exam
Physical Exam
GEN: No acute distress, conversant, pleasant
HEENT: anicteric, extraocular movements intact, clear oropharynx without exudates
GI: soft, obese ,mildy distended, not tender to palpation, normal active bowel sounds, no hepatosplenomegaly
EXT: warm, well perfused, trace edema bilaterally
NEURO: AAOx3, non-focal
[2024-11-07 15:51] VITALS: BP 186/105
--- NOTE | 2024-11-07 16:26 | CM ---
manager of selection and assessment reviewed patient's chart and met with patient and patient was admitted with acute pancreatitis, patient states she lives alone in a 2 story home, 3 steps to enter patient is independent with adl's and ambulation. Plan home when stable.
PCP: Dr. Muhammad
Pharmacy: [facility].
--- NOTE | 2024-11-07 17:00 | W.PN.HOSP.TC ---
Addendum entered and electronically signed by Puma Byrne MD 11/07/24 17:11:
BP running high, possibly related to pain, will start low dose Norvasc and follow BP
Original Note:
Today's Communication/Plan
-
remains very symptomatic, though Dilaudid not holding for 4 hrs, will change to q3h prn
Assessment / Plan
Assessment / Plan
79-year-old presented to the emergency department with mid abdominal and upper abdominal pain after consumption of onions. Found to have acute pancreatitis by lipase greater than 2000 in ED. LFTs were normal. The rest of her labs are
unremarkable. CT scan consistent with acute pancreatitis of the head of the pancreas without necrosis or peripancreatic fluid collection. No, bile duct dilation and no evidence of gallstones in the gallbladder. Picture consistent with her prior
diagnosis of idiopathic pancreatitis. She extensive evaluation a year ago with no clear etiological reason. 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 Reactive
leukocytosis suspected.
Acute pancreatitis, second episode
-CT/MRI imaging showing superior mesenteric vein thrombosis, mild PD dilation. Reviewed SMVT with radiology- significantly improved, still some stenosis proximally but occlusive filling defect no longer seen. Will hold on anticoagulation at this
time
-Mild leukocytosis, likely reactive
-Occasional alcohol use
PLAN:
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 AC held. No evidence of GB stones,
no hx of stones. Patient continues with occasional etoh but denies any recent use. Had a large greasy soup (Q[place]ari Onion Soup) prior to this episode.
- admit to med/surg
- npo except meds/icechips
- pain control and antiemetics
- gentle hydration
- trend lfts
- given studies performed previously will consult GI, input appreciated
- holding prn metolazone and furosemide
WBC 15.0-->13.7
Lipase >4000-->903
AST, ALT, Bili - all nl on admission
DVT PPX lovenox sq
Code status - Full code
Anticipated Discharge: > 48 hours
Subjective/Interval History
-
Date of Service: November 07, 2024
still with abdominal pain, no BM
Objective Data
-
Labs:
Laboratory Results
11/07/24
07:44
WBC 13.7 H
Hgb 14.7
Hct 42.6
Plt Count 234
Sodium 137
Potassium 3.8
Chloride 107
Carbon Dioxide 26
BUN 16
Creatinine 0.6
Glucose 116 H
Calcium 8.3 L D
Vital Signs:
Vital Signs
Temp Pulse Resp BP Pulse Ox
99.1 F 105 18 186/105 94
11/07/24 15:51 11/07/24 15:51 11/07/24 15:51 11/07/24 15:51 11/07/24 15:51
I&O
11/06/24 11/07/24 11/08/24
06:59 06:59 06:59
Intake Total 1000 / 1000
Output Total 0 / 0
Balance 1000 / 1000
Review of Systems
-
History Source: Patient and Coordinated Provider
Constitutional: Denies Fever
Respiratory: Reports No Symptoms
Cardiac: Reports No Symptoms
Abdomen/GI: Reports Abdominal Pain and Constipated
Genitourinary: Reports No Symptoms
Physical Exam
-
General: Well Developed, Well Nourished and No Apparent Distress
HEENT: Normocephalic, Atraumatic and Moist Mucous Membranes
Respiratory: Clear to Auscultation; Negative Wheezes, Rales or Rhonchi
Cardiac: Regular Rhythm and S1/S2
GI: Soft, Normal Bowel Sounds and Tender
Musculoskeletal: No Clubbing, No Cyanosis and No Edema
[2024-11-07] MEDS: LOVENOX 40 MG SC (17:38)
[2024-11-07] MEDS: NORVASC 2.5 MG PO (17:39)
[2024-11-07] MEDS: ZOFRAN 4 MG IV (19:43)
[2024-11-07] MEDS: AMBIEN 10 MG PO (23:04)
[2024-11-07 23:21] VITALS: BP 164/78
[2024-11-07 23:30] VITALS: BP 182/101
[2024-11-08 00:14] VITALS: BP 166/78
[2024-11-08 00:20] VITALS: BP 151/81
--- NOTE | 2024-11-08 02:26 | DOWNTIME ---
There was a [employer] Off[employer] Downtime on 11/08/2024 from 0100 to 11/08/2024 at 0220. Downtime documentation of patient's care, including medication administrations, has been reconciled in the electronic record per guidelines. Refer to the
patient's paper chart under the miscellaneous tab to see printed paper medication records and downtime forms.
[2024-11-08] MEDS: ZOFRAN 4 MG IV ×2 (05:35→13:49)
[2024-11-08] MEDS: DILAUDID IV (05:35)
[2024-11-08] MEDS: SYNTHROID 100 MCG PO (05:35)
[2024-11-08] MEDS: DILAUDID 0.5 MG IV ×4 (06:34→20:52)
[2024-11-08 06:54] LABS: ALT (SGPT) 20 U/L (0-35); AST (SGOT) 34 U/L (14-36); Albumin 3.3 g/dl (3.5-5.0); Alkaline Phosphatase 72 U/L (38-126); Blood Urea Nitrogen 13 mg/dl (7-17); Calcium 8.4 mg/dl (8.4-10.2); Carbon Dioxide 28 mmol/L (22-30); Chloride 105 mmol/L (98-107); Estimated Creatinine Clearance 81 ml/min; Glucose 97 mg/dl (70-99); Lipase 161 U/L (23-300); Potassium 3.5 mmol/L (3.5-5.1); Sodium 136 mmol/L (135-145); Total Protein 6.1 g/dl (6.3-8.2); eGFR > 60.00
[2024-11-08 07:02] LABS: Hematocrit 39.5 % (37.0-47.0); Hemoglobin 13.4 g/dL (12.0-16.0); Mean Corp Hgb Conc. 33.9 g/dL (33.0-37.0); Mean Corpuscular Volume 84.9 fL (81.0-99.0); Nucleated Red Blood Cells % 0 %; Platelet Count 150 10^3/uL (130-400); Red Cell Dist. Width 13.9 % (11.5-14.5)
[2024-11-08 08:20] VITALS: BP 143/84
[2024-11-08] MEDS: PROTONIX 40 MG PO (09:47)
[2024-11-08] MEDS: NORVASC 2.5 MG PO ×2 (09:47→20:47)
[2024-11-08] MEDS: LOW STRENGTH ASPIRIN 81 MG PO (09:47)
[2024-11-08] MEDS: MIRALAX 17 GRAMS PO (09:48)
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
[2024-11-08] MEDS: LR 1000 IV (13:45)
--- NOTE | 2024-11-08 14:36 | CM ---
CM reviewed chart, patient to restart IVF. CM will continue to follow for all discharge planning needs.
Plan; home when stable
[2024-11-08 15:56] VITALS: BP 183/91
[2024-11-08] MEDS: TORADOL 15 MG IV (17:08)
[2024-11-08] MEDS: LOVENOX 40 MG SC (17:09)
--- NOTE | 2024-11-08 17:28 | W.PN.HOSP.TC ---
Today's Communication/Plan
-
continue IVF
Relistor
continue clear liquids
follow labs
Assessment / Plan
Assessment / Plan
79-year-old presented to the emergency department with mid abdominal and upper abdominal pain after consumption of onions. Found to have acute pancreatitis by lipase greater than 2000 in ED. LFTs were normal. The rest of her labs are
unremarkable. CT scan consistent with acute pancreatitis of the head of the pancreas without necrosis or peripancreatic fluid collection. No, bile duct dilation and no evidence of gallstones in the gallbladder. Picture consistent with her prior
diagnosis of idiopathic pancreatitis. She extensive evaluation a year ago with no clear etiological reason. 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 Reactive
leukocytosis suspected.
Acute pancreatitis, 3rd episode
-CT/MRI imaging showing superior mesenteric vein thrombosis, mild PD dilation. Reviewed SMVT with radiology- significantly improved, still some stenosis proximally but occlusive filling defect no longer seen. Will hold on anticoagulation at this
time
-Mild leukocytosis, likely reactive
-Occasional alcohol use
Constipation
worsened by narcotics on top of pancreatitis induced ileus
will try dose of Relistor
PLAN:
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 AC held. No evidence of GB stones,
no hx of stones. Patient continues with occasional etoh but denies any recent use. Had a large greasy soup ([place] Onion Soup) prior to this episode.
- admit to med/surg
- npo except meds/icechips
- pain control and antiemetics
- gentle hydration
- trend lfts
- given studies performed previously will consult GI, input appreciated
- holding prn metolazone and furosemide
WBC 15.0-->13.7-->15.6
Lipase >4000-->903-->161
AST, ALT, Bili - all nl on admission
will improvement in Lipase, hopefully Pancreatitis symptoms will begin to improve
DVT PPX lovenox sq
Code status - Full code
Anticipated Discharge: > 48 hours
Subjective/Interval History
-
Date of Service: November 08, 2024
Still with abd pain, no BM
Objective Data
-
Labs:
Laboratory Results
11/08/24
06:23
WBC 15.6 H
Hgb 13.4
Hct 39.5
Plt Count 150 D
Sodium 136
Potassium 3.5
Chloride 105
Carbon Dioxide 28
BUN 13
Creatinine 0.5 L
Glucose 97
Calcium 8.4
Total Bilirubin 1.3
AST 34
ALT 20
Alkaline Phosphatase 72
Vital Signs:
Vital Signs
Temp Pulse Resp BP Pulse Ox
98.3 F 85 16 183/91 97
11/08/24 15:56 11/08/24 15:56 11/08/24 15:56 11/08/24 15:56 11/08/24 15:56
I&O
11/07/24 11/08/24 11/09/24
06:59 06:59 06:59
Intake Total 1000 / 1000 360 / 360
Output Total 0 / 0
Balance 1000 / 1000 360 / 360
Review of Systems
-
History Source: Patient and Coordinated Provider
Constitutional: Denies Fever
Respiratory: Reports No Symptoms
Cardiac: Reports No Symptoms
Abdomen/GI: Reports Abdominal Pain and Constipated
Genitourinary: Reports No Symptoms
Physical Exam
-
General: Well Developed, Well Nourished and No Apparent Distress
HEENT: Normocephalic, Atraumatic and Moist Mucous Membranes
Respiratory: Clear to Auscultation; Negative Wheezes, Rales or Rhonchi
Cardiac: Regular Rhythm and S1/S2
GI: Soft and Tender; Negative Normal Bowel Sounds (hypoactive, but present)
Musculoskeletal: No Clubbing, No Cyanosis and No Edema
[2024-11-08] MEDS: RELISTOR 8 MG SC (18:45)
[2024-11-08] MEDS: AMBIEN 10 MG PO (21:57)
[2024-11-08 23:37] VITALS: BP 150/88
[2024-11-09] MEDS: LR 1000 IV ×3 (02:11→21:24)
[2024-11-09] MEDS: SYNTHROID 112 MCG PO (06:04)
[2024-11-09 08:22] VITALS: BP 175/92
[2024-11-09 10:42] LABS: Hematocrit 38.2 % (37.0-47.0); Hemoglobin 12.9 g/dL (12.0-16.0); Mean Corp Hgb Conc. 33.8 g/dL (33.0-37.0); Mean Corpuscular Volume 85.1 fL (81.0-99.0); Nucleated Red Blood Cells % 0 %; Platelet Count 164 10^3/uL (130-400); Red Cell Dist. Width 13.9 % (11.5-14.5)
[2024-11-09] MEDS: ZOFRAN 4 MG IV (11:07)
[2024-11-09] MEDS: DILAUDID 0.5 MG IV ×2 (11:08→15:38)
[2024-11-09] MEDS: PROTONIX 40 MG PO (11:09)
[2024-11-09] MEDS: NORVASC 2.5 MG PO ×2 (11:09→21:25)
[2024-11-09] MEDS: LOW STRENGTH ASPIRIN 81 MG PO (11:09)
[2024-11-09] MEDS: MIRALAX PO ×2 (11:09→11:25)
[2024-11-09 11:49] LABS: ALT (SGPT) 23 U/L (0-35); AST (SGOT) 32 U/L (14-36); Albumin 3.2 g/dl (3.5-5.0); Alkaline Phosphatase 85 U/L (38-126); Blood Urea Nitrogen 14 mg/dl (7-17); Calcium 8.4 mg/dl (8.4-10.2); Carbon Dioxide 24 mmol/L (22-30); Chloride 104 mmol/L (98-107); Estimated Creatinine Clearance 81 ml/min; Glucose 68 mg/dl (70-99); Lipase 251 U/L (23-300); Potassium 3.5 mmol/L (3.5-5.1); Sodium 136 mmol/L (135-145); Total Protein 5.8 g/dl (6.3-8.2); eGFR > 60.00
--- NOTE | 2024-11-09 14:03 | PN.CDI ---
CDI
- -
CDI:
Physician Documentation Request
Admit Date: 11/06/24 04:47
Dear Doctor Caty,
Clinical Indicators:
Patient admitted with acute recurrent pancreatitis; PMH includes hypertension.
11/07, PN, 'BP running high, possibly related to pain, will start low dose Norvasc and follow BP'
BP trend:
11/06/24
06:08 11/06/24
07:25 11/07/24
15:51
Blood pressure 180/88 180/89 186/105
11/07/24
23:30 11/08/24
15:56
Blood pressure 182/101 183/91
Please clarify which, if any of the following, is a more accurate diagnosis reflecting the type and acuity of the documented hypertension:
Hypertensive Urgency - B/P is severely elevated (systolic > or = to 180 or diastolic > or = to 110) but there is no associated organ damage. Symptoms may include: headache, shortness of breath, nosebleeds, severe anxiety. Treatment usually consists
of addition to or adjusting of oral medications and does not generally necessitate hospitalization.
Essential primary hypertension only
Other (please specify)
Use of terms such as suspected, likely, concern for, or probable (associated with a specific diagnosis that is being evaluated, monitored, or treated as if it exists) are acceptable and can be coded in the inpatient setting, when documented at the
time of discharge.
Thank you,
HARSHA Valdivia RN
CDI Specialist
available via tiger text
Please use your independent medical judgment in providing your response.
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
--- NOTE | 2024-11-09 15:45 | CM ---
Plan is to home when stable.
Plan; Home when stable.
--- NOTE | 2024-11-09 15:59 | W.PN.HOSP.TC ---
Today's Communication/Plan
-
follow labs
advance diet when okay with GI
Assessment / Plan
Assessment / Plan
79-year-old presented to the emergency department with mid abdominal and upper abdominal pain after consumption of onions. Found to have acute pancreatitis by lipase greater than 2000 in ED. LFTs were normal. The rest of her labs are
unremarkable. CT scan consistent with acute pancreatitis of the head of the pancreas without necrosis or peripancreatic fluid collection. No, bile duct dilation and no evidence of gallstones in the gallbladder. Picture consistent with her prior
diagnosis of idiopathic pancreatitis. She extensive evaluation a year ago with no clear etiological reason. 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 leukocytosis
better
WBC 15.0-->13.7-->15.6-->11.0
Acute pancreatitis, 3rd episode
-CT/MRI imaging showing superior mesenteric vein thrombosis, mild PD dilation. Reviewed SMVT with radiology- significantly improved, still some stenosis proximally but occlusive filling defect no longer seen. Will hold on anticoagulation at this
time
-Occasional alcohol use
Essential primary hypertension only
probably exacerbated by pain. BP remains labile
Constipation
worsened by narcotics on top of pancreatitis induced ileus
was given a dose of Relistor with good response
PLAN:
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 AC held. No evidence of GB stones,
no hx of stones. Patient continues with occasional etoh but denies any recent use. Had a large greasy soup ([place] Onion Soup) prior to this episode.
- admit to med/surg
- npo except meds/icechips
- pain control and antiemetics
- gentle hydration
- trend lfts
- given studies performed previously will consult GI, input appreciated
- holding prn metolazone and furosemide
Lipase >4000-->903-->161-->251
AST, ALT, Bili - all nl on admission
will improvement in Lipase, hopefully Pancreatitis symptoms will begin to improve. If pain does not improve, will defer to GI if further imaging studies would be appropriate
DVT PPX lovenox sq
Code status - Full code
Anticipated Discharge: > 48 hours
Subjective/Interval History
-
Date of Service: November 09, 2024
Still with pain, had good BM today
Objective Data
-
Labs:
Laboratory Results
11/09/24
10:07
WBC 11.0 H
Hgb 12.9
Hct 38.2
Plt Count 164
Sodium 136
Potassium 3.5
Chloride 104
Carbon Dioxide 24
BUN 14
Creatinine 0.5 L
Glucose 68 L
Calcium 8.4
Total Bilirubin 1.1
AST 32
ALT 23
Alkaline Phosphatase 85
Vital Signs:
Vital Signs
Temp Pulse Resp BP Pulse Ox
99.4 F 87 18 175/82 97
11/09/24 08:22 11/09/24 11:09 11/09/24 08:22 11/09/24 11:09 11/09/24 08:22
I&O
11/08/24 11/09/24 11/10/24
06:59 06:59 06:59
Intake Total 360 / 360 1480 / 1480
Balance 360 / 360 1480 / 1480
Review of Systems
-
History Source: Patient and Coordinated Provider
Constitutional: Denies Fever
Respiratory: Reports No Symptoms
Cardiac: Reports No Symptoms
Abdomen/GI: Reports Abdominal Pain and Constipated (better, had good BM today)
Genitourinary: Reports No Symptoms
Neuro: Reports No Symptoms
Physical Exam
-
General: Well Developed, Well Nourished and No Apparent Distress
HEENT: Normocephalic, Atraumatic and Moist Mucous Membranes
Respiratory: Clear to Auscultation; Negative Wheezes, Rales or Rhonchi
Cardiac: Regular Rhythm and S1/S2
GI: Soft, Tender and Distended (mildly); Negative Normal Bowel Sounds (hypoactive, but present)
Musculoskeletal: No Clubbing, No Cyanosis and No Edema
[2024-11-09 16:44] VITALS: BP 146/97
[2024-11-09] MEDS: TORADOL 15 MG IV (18:21)
[2024-11-09] MEDS: LOVENOX 40 MG SC (18:24)
[2024-11-09] MEDS: AMBIEN 10 MG PO (21:24)
[2024-11-09 21:28] VITALS: BP 133/71
[2024-11-09 23:19] VITALS: BP 155/89
[2024-11-10] MEDS: TORADOL 15 MG IV ×2 (02:45→17:10)
--- NOTE | 2024-11-10 03:50 | PTCARENOTE ---
patient's left wrist IV catheter dislodged. VAT notified via [employer]. per VAT RN, she will be up to the bedside, to replace.
[2024-11-10] MEDS: SYNTHROID 100 MCG PO (05:30)
[2024-11-10] MEDS: LR 1000 IV ×2 (05:31→14:49)
[2024-11-10 07:00] VITALS: BP 165/86
[2024-11-10] MEDS: PROTONIX 40 MG PO (08:49)
[2024-11-10] MEDS: NORVASC 2.5 MG PO ×2 (08:49→20:53)
[2024-11-10] MEDS: LOW STRENGTH ASPIRIN 81 MG PO (08:49)
[2024-11-10] MEDS: MIRALAX 17 GRAMS PO (08:49)
[2024-11-10 09:58] LABS: Hematocrit 38.1 % (37.0-47.0); Hemoglobin 12.7 g/dL (12.0-16.0); Mean Corp Hgb Conc. 33.3 g/dL (33.0-37.0); Mean Corpuscular Volume 84.3 fL (81.0-99.0); Platelet Count 169 10^3/uL (130-400); Red Cell Dist. Width 13.8 % (11.5-14.5)
[2024-11-10 10:55] LABS: ALT (SGPT) 25 U/L (0-35); AST (SGOT) 29 U/L (14-36); Albumin 3.0 g/dl (3.5-5.0); Alkaline Phosphatase 92 U/L (38-126); Blood Urea Nitrogen 12 mg/dl (7-17); Calcium 8.5 mg/dl (8.4-10.2); Carbon Dioxide 27 mmol/L (22-30); Chloride 106 mmol/L (98-107); Estimated Creatinine Clearance 81 ml/min; Glucose 81 mg/dl (70-99); Lipase 170 U/L (23-300); Potassium 3.3 mmol/L (3.5-5.1); Sodium 137 mmol/L (135-145); Total Protein 5.6 g/dl (6.3-8.2); eGFR > 60.00
[2024-11-10 11:41] LABS: C-Reactive Protein 135.00 mg/L (0.0-10.00)
[2024-11-10] MEDS: SINGULAIR 10 MG PO (12:14)
[2024-11-10] MEDS: ZOFRAN 4 MG IV (12:15)
--- NOTE | 2024-11-10 14:03 | W.PN.HOSP.TC ---
Today's Communication/Plan
-
await MRCP results
Assessment / Plan
Assessment / Plan
79-year-old presented to the emergency department with mid abdominal and upper abdominal pain after consumption of onions. Found to have acute pancreatitis by lipase greater than 2000 in ED. LFTs were normal. The rest of her labs are
unremarkable. CT scan consistent with acute pancreatitis of the head of the pancreas without necrosis or peripancreatic fluid collection. No, bile duct dilation and no evidence of gallstones in the gallbladder. Picture consistent with her prior
diagnosis of idiopathic pancreatitis. She extensive evaluation a year ago with no clear etiological reason. 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 leukocytosis
better
WBC 15.0-->13.7-->15.6-->11.0-->8.7
MRCP just completed 11/10, results pending
Acute pancreatitis, 3rd episode
-CT/MRI imaging showing superior mesenteric vein thrombosis, mild PD dilation. Reviewed SMVT with radiology- significantly improved, still some stenosis proximally but occlusive filling defect no longer seen. Will hold on anticoagulation at this
time
-Occasional alcohol use
Essential primary hypertension only
probably exacerbated by pain. BP remains labile
Constipation
worsened by narcotics on top of pancreatitis induced ileus
was given a dose of Relistor with good response, no BM 11/10
PLAN:
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 AC held. No evidence of GB stones,
no hx of stones. Patient continues with occasional etoh but denies any recent use. Had a large greasy soup ([place] Onion Soup) prior to this episode.
- admit to med/surg
- npo except meds/icechips
- pain control and antiemetics
- gentle hydration
- trend lfts
- given studies performed previously will consult GI, input appreciated
- holding prn metolazone and furosemide
Lipase >4000-->903-->161-->251-->170
AST, ALT, Bili - all nl on admission
will improvement in Lipase, hopefully Pancreatitis symptoms will begin to improve.
CRP 135.00
DVT PPX lovenox sq
Code status - Full code
Anticipated Discharge: > 48 hours
Subjective/Interval History
-
Date of Service: November 10, 2024
Still with abdominal pain, but somewhat less intense
Objective Data
-
Labs:
Laboratory Results
11/10/24
08:42
WBC 8.7
Hgb 12.7
Hct 38.1
Plt Count 169
Sodium 137
Potassium 3.3 L
Chloride 106
Carbon Dioxide 27
BUN 12
Creatinine 0.5 L
Glucose 81
Calcium 8.5
Total Bilirubin 0.9
AST 29
ALT 25
Alkaline Phosphatase 92
Vital Signs:
Vital Signs
Temp Pulse Resp BP Pulse Ox
99.1 F 82 18 165/86 97
11/10/24 07:00 11/10/24 07:00 11/10/24 07:00 11/10/24 07:00 11/10/24 08:50
I&O
11/09/24 11/10/24 11/11/24
06:59 06:59 06:59
Intake Total 1480 / 1480 5464 / 5464
Output Total 975 / 975
Balance 1480 / 1480 4489 / 4489
Review of Systems
-
History Source: Patient and Coordinated Provider
Constitutional: Denies Fever
Respiratory: Reports No Symptoms
Cardiac: Reports No Symptoms
Abdomen/GI: Reports Abdominal Pain and Constipated (better, had good BM today)
Genitourinary: Reports No Symptoms
Neuro: Reports No Symptoms
Physical Exam
-
General: Well Developed, Well Nourished and No Apparent Distress
HEENT: Normocephalic, Atraumatic and Moist Mucous Membranes
Respiratory: Clear to Auscultation; Negative Wheezes, Rales or Rhonchi
Cardiac: Regular Rhythm and S1/S2
GI: Soft, Normal Bowel Sounds (more active), Tender and Distended (mildly)
Musculoskeletal: No Clubbing, No Cyanosis and No Edema
[2024-11-10] MEDS: DILAUDID 0.5 MG IV (14:59)
--- NOTE | 2024-11-10 15:16 | CM ---
Chart reviewed and patient for MRI today. Plan is to home when stable.
Plan; To follow with patient progress,
[2024-11-10 16:00] VITALS: BP 143/92
[2024-11-10] MEDS: LOVENOX 40 MG SC (16:24)
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
[2024-11-10] MEDS: SENOKOT-S 1 TABLET PO (17:10)
[2024-11-10] MEDS: KLOR-CON 20 MEQ PO (17:10)
[2024-11-10] MEDS: AMBIEN 10 MG PO (21:51)
[2024-11-10 23:55] VITALS: BP 156/91
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
[2024-11-11] MEDS: SYNTHROID 112 MCG PO (06:09)
[2024-11-11 07:40] VITALS: BP 172/55
[2024-11-11] MEDS: PROTONIX 40 MG PO (08:48)
[2024-11-11] MEDS: LOW STRENGTH ASPIRIN 81 MG PO (08:48)
[2024-11-11] MEDS: NORVASC 2.5 MG PO ×2 (08:48→22:35)
[2024-11-11 08:50] LABS: Hematocrit 37.7 % (37.0-47.0); Hemoglobin 12.6 g/dL (12.0-16.0); Mean Corp Hgb Conc. 33.4 g/dL (33.0-37.0); Mean Corpuscular Volume 85.7 fL (81.0-99.0); Nucleated Red Blood Cells % 0 %; Platelet Count 183 10^3/uL (130-400); Red Cell Dist. Width 13.7 % (11.5-14.5)
[2024-11-11] MEDS: MIRALAX PO ×2 (08:58→22:32)
[2024-11-11 09:29] LABS: ALT (SGPT) 28 U/L (0-35); AST (SGOT) 26 U/L (14-36); Albumin 3.0 g/dl (3.5-5.0); Alkaline Phosphatase 83 U/L (38-126); Blood Urea Nitrogen 11 mg/dl (7-17); Calcium 8.4 mg/dl (8.4-10.2); Carbon Dioxide 30 mmol/L (22-30); Chloride 105 mmol/L (98-107); Estimated Creatinine Clearance 81 ml/min; Glucose 84 mg/dl (70-99); Potassium 3.3 mmol/L (3.5-5.1); Sodium 139 mmol/L (135-145); Total Protein 5.6 g/dl (6.3-8.2); eGFR > 60.00
[2024-11-11 09:40] LABS: C-Reactive Protein 79.70 mg/L (0.0-10.00)
[2024-11-11 15:50] VITALS: BP 140/80
--- NOTE | 2024-11-11 16:02 | W.PN.HOSP.TC ---
Today's Communication/Plan
-
recheck labs
if tolerates diet and labs continue to show improvement, potential dc tomorrow for outpt follow up
Assessment / Plan
Assessment / Plan
79-year-old presented to the emergency department with mid abdominal and upper abdominal pain after consumption of onions. Found to have acute pancreatitis by lipase greater than 2000 in ED. LFTs were normal. The rest of her labs are
unremarkable. CT scan consistent with acute pancreatitis of the head of the pancreas without necrosis or peripancreatic fluid collection. No, bile duct dilation and no evidence of gallstones in the gallbladder. Picture consistent with her prior
diagnosis of idiopathic pancreatitis. She extensive evaluation a year ago with no clear etiological reason. 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 leukocytosis
better
WBC 15.0-->13.7-->15.6-->11.0-->8.7-->8.2
MRCP just completed 11/10, MR findings compatible with pancreatitis. No evidence for macroscopic pancreatic necrosis. No evidence of a focal collection.
Bilateral pleural effusions, slightly greater on the right compared to the left. Dependent atelectasis in the posterior lungs.
No evidence for biliary ductal dilation. No evidence for bile duct calculus.
Comparing to MRI of the abdomen from December 18, 2023, interval decrease in caliber of the pancreatic duct. Questionable pancreatic divisum anatomy.
Mild fatty infiltration of the liver.
Acute pancreatitis, 3rd episode
abdominal pain finally starting to resolve. Had extensive BM's today
Pt states she is feeling weak
Essential primary hypertension only
probably exacerbated by pain. BP remains labile
Constipation
worsened by narcotics on top of pancreatitis induced ileus
was given a dose of Relistor with good response,
PLAN:
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 AC held. No evidence of GB stones,
no hx of stones. Patient continues with occasional etoh but denies any recent use. Had a large greasy soup ([place] Onion Soup) prior to this episode.
-diet now low fat
- pain control and antiemetics
- off IVF
- trend lfts
- given studies performed previously will consult GI, input appreciated
- holding prn metolazone and furosemide
Lipase >4000-->903-->161-->251-->170
AST, ALT, Bili - all nl on admission
will improvement in Lipase, hopefully Pancreatitis symptoms will begin to improve.
CRP 135.00-->79.7
mild hypokalemia will supplement
DVT PPX lovenox sq
Code status - Full code
Anticipated Discharge: 24 - 48 hours
Subjective/Interval History
-
Date of Service: November 11, 2024
Still with abdominal pain
Objective Data
-
Labs:
Laboratory Results
11/11/24
06:45
WBC 8.2
Hgb 12.6
Hct 37.7
Plt Count 183
Sodium 139
Potassium 3.3 L
Chloride 105
Carbon Dioxide 30
BUN 11
Creatinine 0.6
Glucose 84
Calcium 8.4
Total Bilirubin 0.9
AST 26
ALT 28
Alkaline Phosphatase 83
Vital Signs:
Vital Signs
Temp Pulse Resp BP Pulse Ox
98.6 F 77 20 172/55 99
11/11/24 07:40 11/11/24 07:40 11/11/24 07:40 11/11/24 07:40 11/11/24 08:50
I&O
11/10/24 11/11/24 11/12/24
06:59 06:59 06:59
Intake Total 5464 / 5464
Output Total 975 / 975
Balance 4489 / 4489
Review of Systems
-
History Source: Patient and Coordinated Provider
Constitutional: Denies Fever
Respiratory: Reports No Symptoms
Cardiac: Reports No Symptoms
Abdomen/GI: Reports Abdominal Pain; Denies Constipated (resolved, now with diarrhea)
Genitourinary: Reports No Symptoms
Neuro: Reports No Symptoms
Physical Exam
-
General: Well Developed, Well Nourished and No Apparent Distress
HEENT: Normocephalic, Atraumatic and Moist Mucous Membranes
Respiratory: Clear to Auscultation; Negative Wheezes, Rales or Rhonchi
Cardiac: Regular Rhythm and S1/S2
GI: Soft, Normal Bowel Sounds (more active) and Tender (less); Negative Distended (resolved)
Musculoskeletal: No Clubbing, No Cyanosis and No Edema
[2024-11-11] MEDS: LOVENOX 40 MG SC (16:16)
--- NOTE | 2024-11-11 16:40 | CM ---
Home when stable, no needs.
Plan; Home at discharge.
--- NOTE | 2024-11-11 18:24 | PTCARENOTE ---
Patient stated she has had over 15 small liquid BM's through out the day
[2024-11-11] MEDS: AMBIEN 10 MG PO (22:30)
[2024-11-11] MEDS: ULTRAM 25 MG PO (22:45)
[2024-11-11] MEDS: TORADOL 15 MG IV (22:49)
[2024-11-11] MEDS: FLUSH (NSS) 1 FLUSH IV (22:50)
[2024-11-11 23:10] VITALS: BP 157/85
[2024-11-12] MEDS: SYNTHROID 100 MCG PO (06:46)
[2024-11-12 07:50] VITALS: BP 167/88
[2024-11-12 08:23] LABS: Hematocrit 37.3 % (37.0-47.0); Hemoglobin 12.4 g/dL (12.0-16.0); Mean Corp Hgb Conc. 33.2 g/dL (33.0-37.0); Mean Corpuscular Volume 85.4 fL (81.0-99.0); Nucleated Red Blood Cells % 0 %; Platelet Count 206 10^3/uL (130-400); Red Cell Dist. Width 13.9 % (11.5-14.5)
[2024-11-12 08:26] LABS: ALT (SGPT) 31 U/L (0-35); AST (SGOT) 28 U/L (14-36); Albumin 3.1 g/dl (3.5-5.0); Alkaline Phosphatase 75 U/L (38-126); Blood Urea Nitrogen 10 mg/dl (7-17); Calcium 8.5 mg/dl (8.4-10.2); Carbon Dioxide 29 mmol/L (22-30); Chloride 107 mmol/L (98-107); Estimated Creatinine Clearance 81 ml/min; Glucose 96 mg/dl (70-99); Lipase 335 U/L (23-300); Potassium 3.5 mmol/L (3.5-5.1); Sodium 140 mmol/L (135-145); Total Protein 5.7 g/dl (6.3-8.2); eGFR > 60.00
[2024-11-12] MEDS: MIRALAX 17 GRAMS PO (08:52)
[2024-11-12] MEDS: NORVASC 2.5 MG PO ×2 (08:52→19:56)
[2024-11-12] MEDS: PROTONIX 40 MG PO (08:54)
[2024-11-12] MEDS: LOW STRENGTH ASPIRIN 81 MG PO (08:54)
[2024-11-12 15:10] VITALS: BP 155/83
[2024-11-12 16:32] VITALS: BP 154/90; PULSE 74; O2SAT 95
--- NOTE | 2024-11-12 16:36 | W.PN.HOSP.TC ---
Today's Communication/Plan
-
resume Lasix
Assessment / Plan
Assessment / Plan
79-year-old presented to the emergency department with mid abdominal and upper abdominal pain after consumption of onions. Found to have acute pancreatitis by lipase greater than 2000 in ED. LFTs were normal. The rest of her labs are
unremarkable. CT scan consistent with acute pancreatitis of the head of the pancreas without necrosis or peripancreatic fluid collection. No, bile duct dilation and no evidence of gallstones in the gallbladder. Picture consistent with her prior
diagnosis of idiopathic pancreatitis. She extensive evaluation a year ago with no clear etiological reason. 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 leukocytosis
better
WBC 15.0-->13.7-->15.6-->11.0-->8.7-->8.2
MRCP just completed 11/10, MR findings compatible with pancreatitis. No evidence for macroscopic pancreatic necrosis. No evidence of a focal collection.
Bilateral pleural effusions, slightly greater on the right compared to the left. Dependent atelectasis in the posterior lungs.
No evidence for biliary ductal dilation. No evidence for bile duct calculus.
Comparing to MRI of the abdomen from December 18, 2023, interval decrease in caliber of the pancreatic duct. Questionable pancreatic divisum anatomy.
Mild fatty infiltration of the liver.
Acute pancreatitis, 3rd episode
abdominal pain finally starting to resolve. Continues to have extensive BM's today
Pt states she is feeling weak
Essential primary hypertension only
probably exacerbated by pain. BP remains labile
Constipation
worsened by narcotics on top of pancreatitis induced ileus
was given a dose of Relistor with good response,
PLAN:
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 AC held. No evidence of GB stones,
no hx of stones. Patient continues with occasional etoh but denies any recent use. Had a large greasy soup (Sami Onion Soup) prior to this episode.
-diet now low fat
- pain control and antiemetics
- off IVF
- trend lfts
- holding prn metolazone, will resume daily furosemide
Lipase >4000-->903-->161-->251-->170
AST, ALT, Bili - all nl on admission
will improvement in Lipase, hopefully Pancreatitis symptoms will begin to improve.
CRP 135.00-->79.7
mild hypokalemia resolved, with resumption of Lasix will supplement K
DVT PPX lovenox sq
Code status - Full code
If feels well tomorrow, will dc
Anticipated Discharge: 24 - 48 hours
Subjective/Interval History
-
Date of Service: November 12, 2024
Abdominal pain has lessened
Objective Data
-
Labs:
Laboratory Results
11/12/24
06:04
WBC 8.2
Hgb 12.4
Hct 37.3
Plt Count 206
Sodium 140
Potassium 3.5
Chloride 107
Carbon Dioxide 29
BUN 10
Creatinine 0.6
Glucose 96
Calcium 8.5
Total Bilirubin 0.6
AST 28
ALT 31
Alkaline Phosphatase 75
Vital Signs:
Vital Signs
Temp Pulse Resp BP Pulse Ox
99.0 F 76 16 155/83 95
11/12/24 15:10 11/12/24 15:10 11/12/24 15:10 11/12/24 15:10 11/12/24 15:10
I&O
11/11/24 11/12/24 11/13/24
06:59 06:59 06:59
Intake Total 1780 / 1780
Balance 1780 / 1780
Review of Systems
-
History Source: Patient and Coordinated Provider
Constitutional: Denies Fever
Respiratory: Reports No Symptoms
Cardiac: Reports No Symptoms
Abdomen/GI: Reports Abdominal Pain; Denies Constipated (resolved, now with diarrhea)
Genitourinary: Reports No Symptoms
Neuro: Reports No Symptoms
Physical Exam
-
General: Well Developed, Well Nourished and No Apparent Distress
HEENT: Normocephalic, Atraumatic and Moist Mucous Membranes
Respiratory: Clear to Auscultation; Negative Wheezes, Rales or Rhonchi
Cardiac: Regular Rhythm and S1/S2
GI: Soft, Normal Bowel Sounds (more active) and Tender (less); Negative Distended (resolved)
Musculoskeletal: No Clubbing, No Cyanosis, Edema, Right Lower Extrem (2+) and Edema, Left Lower Extrem (2+)
Neuro: Awake, Alert and Oriented
[2024-11-12] MEDS: KCL 20 MEQ PO (17:27)
[2024-11-12] MEDS: LASIX 20 MG PO (17:27)
[2024-11-12] MEDS: LOVENOX SC ×2 (17:32→17:42)
[2024-11-12] MEDS: MIRALAX PO (19:59)
[2024-11-12] MEDS: AMBIEN 10 MG PO (21:20)
[2024-11-12 22:56] VITALS: BP 166/89
[2024-11-13] MEDS: SYNTHROID 112 MCG PO (05:05)
[2024-11-13 06:25] LABS: Blood Urea Nitrogen 9 mg/dl (7-17); Calcium 8.2 mg/dl (8.4-10.2); Carbon Dioxide 30 mmol/L (22-30); Chloride 107 mmol/L (98-107); Estimated Creatinine Clearance 81 ml/min; Glucose 91 mg/dl (70-99); Potassium 3.7 mmol/L (3.5-5.1); Sodium 140 mmol/L (135-145); eGFR > 60.00
[2024-11-13 08:00] VITALS: BP 127/77
[2024-11-13] MEDS: KCL 20 MEQ PO (08:49)
[2024-11-13] MEDS: NORVASC 2.5 MG PO (08:49)
[2024-11-13] MEDS: PROTONIX 40 MG PO (08:49)
[2024-11-13] MEDS: LASIX 20 MG PO (08:49)
[2024-11-13] MEDS: LOW STRENGTH ASPIRIN 81 MG PO (08:49)
[2024-11-13] MEDS: MIRALAX PO (08:50)
[2024-11-13 11:20] LABS: ALT (SGPT) 34 U/L (0-35); AST (SGOT) 29 U/L (14-36); Albumin 3.0 g/dl (3.5-5.0); Alkaline Phosphatase 71 U/L (38-126); Lipase 433 U/L (23-300); Total Protein 5.6 g/dl (6.3-8.2)
--- NOTE | 2024-11-13 14:44 | W.PN.HOSP.TC ---
Today's Communication/Plan
-
dc now
Assessment / Plan
Assessment / Plan
79-year-old presented to the emergency department with mid abdominal and upper abdominal pain after consumption of onions. Found to have acute pancreatitis by lipase greater than 2000 in ED. LFTs were normal. The rest of her labs are
unremarkable. CT scan consistent with acute pancreatitis of the head of the pancreas without necrosis or peripancreatic fluid collection. No, bile duct dilation and no evidence of gallstones in the gallbladder. Picture consistent with her prior
diagnosis of idiopathic pancreatitis. She extensive evaluation a year ago with no clear etiological reason. 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 leukocytosis
better
WBC 15.0-->13.7-->15.6-->11.0-->8.7-->8.2
MRCP just completed 11/10, MR findings compatible with pancreatitis. No evidence for macroscopic pancreatic necrosis. No evidence of a focal collection.
Bilateral pleural effusions, slightly greater on the right compared to the left. Dependent atelectasis in the posterior lungs.
No evidence for biliary ductal dilation. No evidence for bile duct calculus.
Comparing to MRI of the abdomen from December 18, 2023, interval decrease in caliber of the pancreatic duct. Questionable pancreatic divisum anatomy.
Mild fatty infiltration of the liver.
Acute pancreatitis, 3rd episode
abdominal pain finally starting to resolve. Continues to have extensive BM's today
Pt states she is feeling weak
Essential primary hypertension only
probably exacerbated by pain. BP remains labile
Constipation
worsened by narcotics on top of pancreatitis induced ileus, resolved
was given a dose of Relistor with good response,
PLAN:
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 AC held. No evidence of GB stones,
no hx of stones. Patient continues with occasional etoh but denies any recent use. Had a large greasy soup ([place] Onion Soup) prior to this episode.
-diet now low fat
- pain control and antiemetics
- off IVF
- trend lfts
- holding prn metolazone, will resume daily furosemide
Lipase >4000-->903-->161-->251-->170-->335-->433
AST, ALT, Bili - all nl on admission
will improvement in Lipase, hopefully Pancreatitis symptoms will begin to improve.
CRP 135.00-->79.7
mild hypokalemia resolved, with resumption of Lasix will supplement K
DVT PPX lovenox sq
Code status - Full code
discussed with in room
dc now
More than 30 minutes spent in discharge including
Final examination of the patient
Summarizing hospital stay
Instructions for continuing care to all relevant caregivers
Preparation of discharge records, prescriptions, and referral forms
Total time spent (in minutes): 45
Anticipated Discharge: Today
Subjective/Interval History
-
Date of Service: November 13, 2024
Feels well, abdominal pain essentially resolved
Objective Data
-
Labs:
Laboratory Results
11/13/24
04:11
Sodium 140
Potassium 3.7
Chloride 107
Carbon Dioxide 30
BUN 9
Creatinine 0.6
Glucose 91
Calcium 8.2 L
Total Bilirubin 0.5
AST 29
ALT 34
Alkaline Phosphatase 71
Vital Signs:
Vital Signs
Temp Pulse Resp BP Pulse Ox
98.6 F 81 15 127/77 95
11/13/24 08:00 11/13/24 08:00 11/13/24 08:00 11/13/24 08:00 11/13/24 08:00
I&O
11/12/24 11/13/24 11/14/24
06:59 06:59 06:59
Intake Total 1779
Balance 1779
Review of Systems
-
History Source: Patient and Coordinated Provider
Constitutional: Denies Fever
Respiratory: Reports No Symptoms
Cardiac: Reports No Symptoms
Abdomen/GI: Denies Abdominal Pain (resolved) or Constipated (resolved, now with diarrhea)
Genitourinary: Reports No Symptoms
Neuro: Reports No Symptoms
Physical Exam
-
General: Well Developed, Well Nourished and No Apparent Distress
HEENT: Normocephalic, Atraumatic and Moist Mucous Membranes
Respiratory: Clear to Auscultation; Negative Wheezes, Rales or Rhonchi
Cardiac: Regular Rhythm and S1/S2
GI: Soft, Normal Bowel Sounds (more active) and Tender (minimal); Negative Distended (resolved)
Musculoskeletal: No Clubbing, No Cyanosis, Edema, Right Lower Extrem (2+) and Edema, Left Lower Extrem (2+)
Neuro: Awake, Alert and Oriented
--- NOTE | 2024-11-13 15:06 | W.DS.TRANS ---
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
-
Discharge Instructions:
Discharge Diagnosis/Procedures Pancreatitis
Diet Low Fat
Additional Diets no alcohol
Activity No strenuous activity
Driving Restrictions limited
Bathing Restrictions None
Blood Work CBC, CMP, Lipase in 1-2 weeks
Other Services VN
Instructions:
Stand-Alone Forms:
Changes to Home Medications: Yes
Discharge Medications:
DC Medications w/original date entered in [facility]
alprazolam 0.25 mg tablet 0.25 mg PO DAILYPRN PRN anxiety 04/19/22
lansoprazole 30 mg capsule,delayed release 30 mg PO DAILY Gastrointestinal issue 04/19/22
levothyroxine 100 mcg tablet 100 mcg PO Q48H Thyroid 04/19/22
levothyroxine 112 mcg tablet 112 mcg PO Q48H Thyroid 04/19/22
furosemide 20 mg tablet (Lasix) 20 mg PO DAILYPRN PRN fluid retention 10/10/23
hydrocodone 5 mg-acetaminophen 325 mg tablet 1 tab PO BIDPRN PRN severe pain 10/10/23
therapeutic multivitamin 1 tab PO DAILY Supplement ##0 10/10/23
ascorbic acid (vitamin C) 500 mg tablet (Vitamin C) 500 mg PO DAILY 11/06/24
bran 500 mg tablet 500 mg PO DAILY 11/06/24
calcium polycarbophil 625 mg tablet (FiberCon) 1,250 mg PO DAILY 11/06/24
cholecalciferol (vitamin D3) 25 mcg (1,000 unit) capsule (Vitamin D3) 25 mcg PO DAILY 11/06/24
docusate sodium 100 mg capsule (Colace) 100 mg PO DAILY 11/06/24
glucosamine sulf dipot chlr,msm,chond 550 mg-C 30 mg-bharath 1 mg capsule (Glucosamine Chondroitin) 1 cap PO DAILY 11/06/24
omega-3 fatty acids-fish oil 684 mg-1,200 mg capsule,delayed release 1 cap PO DAILY 11/06/24
vitamin B complex 1 tab PO DAILY 11/06/24
zinc sulfate 50 mg zinc (220 mg) capsule 50 mg PO DAILY 11/06/24
zolpidem 10 mg tablet (Ambien) 10 mg PO HSPRN PRN sleep 11/06/24
amlodipine 2.5 mg tablet 2.5 mg PO BID #60 tabs 11/13/24
metolazone 2.5 mg tablet 2.5 mg 11/13/24
montelukast 10 mg tablet 10 mg PO QPM PRN Allergies #0 tabs 11/13/24
polyvinyl alcohol-povidone (PF) 1.4 %-0.6 % eye drops in a dropperette (Refresh Classic (PF)) 1 drops ophthalmic (eye) QIDPRN PRN dry eyes #0 ea 11/13/24
potassium chloride 20 mEq tablet,extended release(part/cryst) 20 meq PO DAILY #0 tabs 11/13/24
Home Medication Changes
Amlodipine added
Pending Results: No
--- NOTE | 2024-11-13 15:14 | CM ---
Chart reviewed. Patient will d/c today
Per hospitalist, patient will need home care arranged. Patient agreeable to [facility], referral completed
IMM verbally reviewed, copy provided, copy on chart
Private transport home
[facility]

Plan: Home w/ [facility]
[2024-11-13 15:23] VITALS: BP 154/88
== END 2024-11-13 15:35 | disposition home health service (06) | DRG 439 ==
LOC: 4 WEST ACU 04:47
PROVIDERS: Emergency Medicine; Family Medicine; Internal Medicine; Nurse Practitioner Adult Health; ADMITTING PHYSICIAN Internal Medicine; ATTENDING PHYSICIAN Internal Medicine; CONSULT PHYSICIAN Internal Medicine Gastroenterology; EMERGENCY PHYSICIAN Emergency Medicine; FAMILY PHYSICIAN Family Medicine
DX: K85.80 Other acute pancreatitis without necrosis or infection (principal); K56.7 Ileus, unspecified; Z85.850 Personal history of malignant neoplasm of thyroid; F41.9 Anxiety disorder, unspecified; G47.00 Insomnia, unspecified; K21.9 Gastro-esophageal reflux disease without esophagitis; I10 Essential (primary) hypertension; Z79.890 Hormone replacement therapy; E78.00 Pure hypercholesterolemia, unspecified; E89.0 Postprocedural hypothyroidism; F17.200 Nicotine dependence, unspecified, uncomplicated; G89.29 Other chronic pain; K59.00 Constipation, unspecified; Z79.82 Long term (current) use of aspirin; Z79.891 Long term (current) use of opiate analgesic; Z88.0 Allergy status to penicillin; Z90.710 Acquired absence of both cervix and uterus
CPT/HCPCS: 74177; 74183; 80048; 80053; 80061; 82077; 82248; 83605; 83690; 83735; 84100; 84443; 84484; 85025; 85027; 86140; 93005; 96361; 96374; 96375; 96376; 97116; 97162; 99285; A9575; Q9967

== ENCOUNTER 2024-12-29 06:07 | Day surgery (SDC) | payer OTHER, SELFPAY ==
[2024-12-29] VITALS (10 sets, daily range): BP systolic 133–170; BP diastolic 63–100; BMI 32.1
== END 2024-12-29 15:04 | disposition home or self-care (01) ==
LOC: SDS 06:07
PROVIDERS: ATTENDING PHYSICIAN Internal Medicine Gastroenterology
DX: K85.00 Idiopathic acute pancreatitis without necrosis or infection (principal); K86.89 Other specified diseases of pancreas; K83.8 Other specified diseases of biliary tract
CPT/HCPCS: 43274; 74330; 76000; 88305; C1769; C2617

== ENCOUNTER 2025-01-19 06:14 | Day surgery (SDC) | payer OTHER, SELFPAY ==
[2025-01-19 09:30] VITALS: BMI 33.2
[2025-01-19 09:39] VITALS: BMI 33.2
[2025-01-19 09:41] VITALS: BP 122/78
[2025-01-19 11:42] VITALS: BP 121/97
[2025-01-19 11:45] VITALS: BP 121/64
[2025-01-19 12:00] VITALS: BP 131/72
[2025-01-19 12:15] VITALS: BP 133/66
== END 2025-01-19 12:50 | disposition home or self-care (01) ==
LOC: SDS 06:14
PROVIDERS: ATTENDING PHYSICIAN Internal Medicine Gastroenterology
DX: Z46.59 Encounter for fitting and adjustment of other gastrointestinal appliance and device (principal)
CPT/HCPCS: 43247; C1769